=== PATIENT | female | born 1990 | race Two or more races ===

== ENCOUNTER 2018-01-23 11:58 | Outpatient (REF) | payer MEDICAID, SELFPAY | END 2018-01-23 11:59 | LOC: LBN 11:58 | PROVIDERS: PCP Nurse Practitioner; Visit Provider Nurse Practitioner | DX: R30.0 Dysuria (principal); R35.0 Frequency of micturition | CPT/HCPCS: 87077; 87086; 87186 ==

== ENCOUNTER 2018-03-09 19:12 | Outpatient (REF) | payer MEDICAID, SELFPAY | END 2018-03-09 19:32 | LOC: LBN 19:12 | PROVIDERS: PCP Nurse Practitioner; Visit Provider Nurse Practitioner Women's Health | DX: N90.89 Other specified noninflammatory disorders of vulva and perineum (principal); Z11.59 Encounter for screening for other viral diseases | CPT/HCPCS: 87529 ==

== ENCOUNTER 2018-05-24 13:44 | Outpatient (REF) | payer MEDICAID, SELFPAY ==
[2018-05-25 11:58] LABS: Helicobacter pylori Ag, Feces Negative (NEGAT)
== END 2018-05-24 14:04 ==
LOC: LBN 13:44
PROVIDERS: PCP Nurse Practitioner; Visit Provider Nurse Practitioner
DX: R10.13 Epigastric pain (principal); R14.0 Abdominal distension (gaseous)
CPT/HCPCS: 87338

== ENCOUNTER 2019-09-08 13:47 | Emergency (ER) | payer MEDICAID, SELFPAY ==
[2019-09-08 13:49] VITALS: BP 140/80; PULSE 92; RESP 16; TEMP 36.7; O2SAT 100
--- NOTE | 2019-09-08 14:00 | DI.CT_ITS ---
EXAM: CT CHEST/ABD/PEL W CLINICAL HISTORY: Approximately 5 foot fall, blunt trauma, R pain TECHNIQUE: CT examination of the chest, abdomen, and pelvis was performed with bolus infusion of 100 cc of Omnipaque 350. COMPARISON: ABD PELVIS WO CONTRAST from 10/09/2015 FINDINGS: There is no evidence of a thoracic vascular injury. The lungs are clear. No pneumothorax or pleural effusion. No mediastinal hematoma. No adenopathy in the chest. Tracheobronchial tree appears intact. The liver, spleen, and pancreas appear normal. Gallbladder and bile ducts are normal. Adrenals and kidneys are unremarkable. No evidence of urinary tract injury or obstruction. No abdominal or pelvic vascular injury seen. No abdominal or pelvic adenopathy. No significant abdomi nal wall hernia or hematoma. No evidence of bowel injury. IMPRESSION: No evidence of acute injury of the chest, abdomen, or pelvis. DATA REPOSITORY: All CT scans at this facility are submitted to the National Radiology Data Registry (NRDR) Dose Index Registry (DIR) with the [employer] (ACR). RADIATION OPTIMIZATION: All CT scans at this facility use at least one of these dose optimization te chniques: automated exposure control; mA and/or kV adjustment per patient size (includes targeted exa ms where dose is matched to clinical indication); or iterative reconstruction.
--- NOTE | 2019-09-08 14:03 | W.ED.GENAD ---
Discharge Plan Discharge Details Chief Complaint: Trauma Primary Care Provider: Aracelis Maki ED Provider: Derrick Sheppard Home Meds and New Rx's Prescriptions: No Action hydroxyzine HCl 25 mg tablet 25 mg PO QID PRN (Reason: cystitis) Qty: 120 RF: 2 valacyclovir 500 mg tablet 500 mg PO ONCE Qty: 30 RF: 6 omeprazole 20 mg capsule,delayed release(DR/EC) 20 mg PO DAILY Qty: 90 RF: 3 aspirin [Aspir-81] 81 MG tablet,delayed release (DR/EC) 81 mg PO DAILY RF: 0 Botox 100 UNIT recon soln 100 unit IJ DIRECTED RF: 0 clonazepam [Klonopin] 0.5 MG tablet 0.5 mg PO BID Qty: 120 RF: 0 sulfacetamide sodium (acne) 10 % suspension 1 applic TP BID RF: 0 metronidazole 0.75 % gel 1 applic TP BID RF: 0 mesalamine 1.2 gram tablet,delayed release (DR/EC) 1.2 gm PO QID RF: 0 Medical Decision Making 29-year-old female presents after slip and fall. [place] approximately 5 feet landing on her right posterior thoracic low abdomen. She denies loss of consciousness. No neck pain. She complains of right posterior chest pain. Vital signs are normal, patient is well-appearing, her exam is reassuring but she does demonstrate tenderness to percussion along the thorax/abdomen. Differential diagnosis includes contusion, underlying bony fracture, must exclude visceral injury. Patient had IV access established, given analgesia, referred for CT images. (Note: Patient stated she was not and declined to provide urine test). Screening labs are reassuring. Patient CT images without acute finding. She improved with administration of analgesia. Certainly does have contusion but no other significant findings. Discussed with her home management. She is stable for discharge at this time HPI General Mode of arrival: ambulatory. Date/Time Provider Initiated Documentation: 09/08/19 13:49. Limitations to Documentation: no limitations. Information obtained by: patient. History of Present Illness 29 year old F presents to the emergency department with the chief complaint of Fall, right posterior pain, described as moderate, Quality is described as dull and constant, and is localized to the back and right. Patient reports no radiation. Patient started experiencing this minute(s) and it has been constant. No relieving factors improve symptom(s), No exacerbating factors reported . Patient notes chest pain; denies headaches, shortness of breath and syncope. Patient did receive the following treatments prior to arrival, none Related Data Home Medications Medication Instructions Recorded Confirmed aspirin [Aspir-81] 81 mg PO DAILY tab-cap 09/24/14 09/08/19 Botox 100 unit IJ DIRECTED vial 06/11/15 09/08/19 clonazepam [Klonopin] 0.5 mg PO BID #120 tab-cap 07/25/17 09/08/19 hydroxyzine HCl 25 mg tablet 25 mg PO QID PRN #120 tab 05/23/18 09/08/19 valacyclovir 500 mg tablet 500 mg PO ONCE #30 tab 08/08/18 09/08/19 omeprazole 20 mg capsule,delayed 20 mg PO DAILY #90 cap 04/05/19 09/08/19 release metronidazole 0.75 % topical gel 1 applic TP BID 06/27/19 09/08/19 sulfacetamide sodium (acne) 10 % 1 applic TP BID 06/27/19 09/08/19 lotion (suspension) mesalamine 1.2 gram tablet,delayed 1.2 gm PO QID tab 07/06/19 09/08/19 release Previous Rx's Medication Instructions Recorded hydroxyzine HCl 25 mg tablet 25 mg PO QID PRN #120 tab 05/23/18 valacyclovir 500 mg tablet 500 mg PO ONCE #30 tab 08/08/18 omeprazole 20 mg capsule,delayed 20 mg PO DAILY #90 cap 04/05/19 release Allergies Allergy/AdvReac Type Severity Reaction Status Date / Time Penicillins Allergy Mild Itching Verified 09/08/19 13:55 lamotrigine [From Lamictal] Allergy Unknown Verified 09/08/19 13:55 levetiracetam [From Keppra] Allergy Verified 09/08/19 13:55 Estrogens AdvReac Severe CVA Verified 09/08/19 13:55 fluticasone propionate AdvReac Intermediate epistaxis Verified 09/08/19 13:55 [From Flonase] General Stated Complaint: Trauma DONOVAN: 2 Review of Systems Narrative: 6 systems reviewed and otherwise negative. No loss of consciousness, denies headache, no neck pain, no weakness tingling of the upper extremity. A posterior back and abdominal pain. 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 Botox q10 wks 03/28/19 Flat feet, bilateral (Chronic) Gastroesophageal reflux disease without esophagitis (Acute 02/19/16) 02/20/19 Upper GI Endoscopy at [facility] [place]. 02/06/19 GI [facility]-heartburn Multiple thyroid nodules (Acute 10/14/16) Rosacea (Acute) 08/15/18 [facility] [place] Dermatology Surgical History Colonoscopy/EGD w/ BX (04/29/16) Hemorrhoidectomy (08/03/17) excision of clot from hemorrhoid Social History Smoking/Tobacco Use Status: Never Alcohol Intake: never Drug use: Never Substance use type: does not use Do you feel safe at home: Yes Do you feel safe in your relationship?: Yes Female Reproductive History Menstrual control method: diaphragm and other (spermicide) History History 0 Para Hx # Term Pregnancies Multiple births Hx # Pregnancies Ectopic pregnancies AB induced Hx Number of Living Children AB spontaneous Exam Narrative Exam Narrative: GEN: awake, alert, oriented 3. Pleasant, well groomed, interactive. HEAD: Normocephalic, atraumatic ENT: Mucous membranes moist, oropharynx unremarkable, External ear exam unremarkable EYES: PERRL, EOMI NECK: Nontender, full ROM, no LUIZ, no menigismus CHEST/RESP: Right posterior chest wall tenderness, no crepitus, no appreciated abrasion or ecchymosis, clear to auscultation bilateral, no wheeze/rhonchi/rales CARDIOVASCULAR: RRR, no murmur, rub carole. 2+ Rad pulse bilateral Back: No midline step-off or deformity, right posterior paramidline tenderness of the thoracic cage ABDOMEN: Soft, nontender, no mass. +Bowel sounds EXT: Full ROM, no edema, no rash Neuro: Grossly normal neurologic exam, conversant, interactive. Psych: Speech fluent, thoughts congruent, affect normal Course Vital Signs Vital signs: Vital Signs Temperature 36.7 C 09/08/19 13:49 Pulse 92 H 09/08/19 13:49 Respiratory Rate 16 09/08/19 13:49 Blood Pressure 140/80 09/08/19 13:49 Pulse Oximetry 100 09/08/19 13:49 Temperature 36.7 C 09/08/19 13:49 Pulse 92 H 09/08/19 13:49 Respiratory Rate 16 09/08/19 13:49 Respiratory Effort Non-Labored 09/08/19 13:53 Blood Pressure 140/80 09/08/19 13:49 Blood Pressure Position Sitting 09/08/19 13:49 Pulse Oximetry 100 09/08/19 13:49 Oxygen Delivery Method Room Air 09/08/19 13:49 Oxygen Flow Rate 0 09/08/19 13:49 Pain Level 10 09/08/19 13:49
[2019-09-08] MEDS: Normal Saline 1,000 ML 1000 ML IV (14:05)
[2019-09-08 14:13] LABS: Abs Immature Grans 0.01 k/cumm (0.0-0.09); Absolute Basophil Count 0.03 k/cumm (0.0-0.2); Absolute Eosinophil Count 0.05 k/cumm (0.0-0.7); Absolute Monocyte Count 0.41 k/cumm (0.11-0.7); Absolute Neutrophil Count 1.77 k/cumm (1.2-6.7); Basophils % 0.7; Eosinophils % 1.2; HCT 39.5 % (36.0-46.0); HGB 13.4 g/dL (12.0-15.5); Immature Grans % 0.2 %; Lymphocytes % 44.3; Mean Corp. HGB Concentration 33.9 g/dL (32.0-36.0); Mean Corpuscular Hemoglobin 28.7 pg (27.0-33.0); Mean Corpuscular Volume 84.6 fL (80-95); Mean Platelet Volume 9.1 fL (8.0-11.0); Monocytes % 10.1; Neutrophils % 43.5; Platelet Count 333 x1000/uL (130-400); RBC 4.67 m/cumm (4.00-5.20); RBC Distribution Width 12.6 % (11.7-14.6); White Blood Cell Count 4.06 k/cumm (4.4-10.8)
[2019-09-08] MEDS: HYDROmorphone 2 MG/ML VIAL 0.5 MG IVP (14:15)
[2019-09-08 14:27] LABS: ALT 19 U/L (14-59); AST 18 U/L (15-37); Albumin 3.9 g/dL (3.4-5.0); Alkaline Phosphatase 53 U/L (46-116); Anion Gap 11.8 mmol/L (3-11); BUN 7 mg/dL (7-18); Bilirubin, Total 0.4 mg/dL (0.2-1.0); CO2 24.2 mmol/L (21.0-32.0); CREATININE 0.95 mg/dL (0.55-1.02); Calcium 8.7 mg/dL (8.5-10.1); Chloride 103 mmol/L (98-107); Glucose 108 mg/dL (74-106); Potassium 3.4 mmol/L (3.5-5.1); Sodium 139 mmol/L (136-145); Total Protein 7.5 g/dL (6.4-8.2)
[2019-09-08] MEDS: Omnipaque 350 MG/ML 100 ML BTL IJ (14:56)
[2019-09-08] MEDS: Normal Saline - Diluent 50 ML VIAL IV (14:56)
--- NOTE | 2019-09-08 15:04 | DI.VRAD_ITS ---
PROCEDURE INFORMATION: Exam: CT Chest With Contrast Exam date and time: 09/08/2019 2:03 PM Age: 29 years old Clinical indication: Injury or trauma; Fall; Initial encounter; Ruq; Blunt trauma (contusions or hematomas); Injury details: Fell on rock TECHNIQUE: Imaging protocol: Computed tomography of the chest with intravenous contrast. COMPARISON: CT ABD PELVIS WO CONTRAST 10/09/2015 3:23 PM FINDINGS: Mediastinum appears unremarkable. No evidence of pneumothorax. No pleural effusion. No significant focal consolidation. Bony structures appear intact. IMPRESSION: No evidence of significant thoracic trauma. PROCEDURE INFORMATION: Exam: CT Abdomen And Pelvis With Contrast Exam date and time: 09/08/2019 2:03 PM Age: 29 years old Clinical indication: Injury or trauma; Fall; Initial encounter; Ruq; Blunt trauma (contusions or hematomas); Injury details: Fell on rock TECHNIQUE: Imaging protocol: Computed tomography of the abdomen and pelvis with intravenous contrast. COMPARISON: CT ABD PELVIS WO CONTRAST 10/09/2015 3:23 PM FINDINGS: Liver, spleen, and kidneys appear intact. No significant free fluid. No extraluminal air. Bony structures intact. IMPRESSION: No evidence of significant abdominal or pelvic trauma. Dictated and Authenticated by: Alvarado Miramontes MD. Ordering:ALESIA Meza MD
[2019-09-08 15:10] VITALS: BP 102/65; PULSE 82; RESP 16; TEMP 36.6; O2SAT 97
[2019-09-08] MEDS: Ketorolac 15 MG/ML VIAL IVP (15:33)
== END 2019-09-08 15:45 | disposition home or self-care (01) ==
PROVIDERS: Emergency Provider Emergency Medicine; PCP Nurse Practitioner
DX: S20.222A Contusion of left back wall of thorax, initial encounter (principal); W01.0XXA Fall on same level from slipping, tripping and stumbling without subsequent striking against object, initial encounter
CPT/HCPCS: 74177; 80053; 96361; 96374; 99285; 71260; 85025; 99284; J1885; J3490

== ENCOUNTER 2019-10-31 01:53 | Outpatient (CLI) | payer MEDICAID, SELFPAY ==
--- NOTE | 2019-10-31 07:45 | DI.US_ITS ---
EXAM: US THYROID CLINICAL HISTORY: F/U MULTIPLE THYROID NODULES, NONTOXIC MULTINODULAR GOITER, E04.2 TECHNIQUE: Ultrasound performed using standard protocol. COMPARISON: US THYROID ULTRASOUND from 10/13/2016 FINDINGS: Thyroid ultrasound was performed according to the usual protocol and is compared with prior ultrasoun d examination of 10/13/2016. Right thyroid lobe measures 51 x 14 x 17 millimeters. Left thyroid lobe measures 54 x 14 x 14. The isthmus is about 2 millimeters in thickness. There are multiple thyroid nodules identified. There is a dominant 14 millimeter in diameter complex lesion, which shows increased vascularity on Doppler evaluation. This appears to contain some quest ionable punctate echogenic foci, the TI-RADS category for this lesion is TR4, fine needle aspiration recommended to assess the possibility of malignancy. The remaining thyroid nodules show TI-RADS scores of TR3 or less, no additional recommendations for b iopsy at this time. IMPRESSION: Tissue sampling recommended for left lobe lower pole complex thyroidal mass with internal punctate mi crocalcifications, TI-RADS category TR4. DATA REPOSITORY:
== END 2019-10-31 02:13 ==
PROVIDERS: PCP Nurse Practitioner; Visit Provider Nurse Practitioner
DX: E04.2 Nontoxic multinodular goiter (principal); E07.89 Other specified disorders of thyroid
CPT/HCPCS: 76536

== ENCOUNTER 2019-11-21 01:42 | Outpatient (CLI) | payer MEDICAID, SELFPAY ==
--- NOTE | 2019-11-21 13:15 | DI.US_ITS ---
EXAM: US BREAST LT COMPLETE CLINICAL HISTORY: Breast tender, feels warm to patient, fibrocystic canges, N60.19 TECHNIQUE: Ultrasound performed using standard protocol. COMPARISON: US US THYROID from 10/31/2019 FINDINGS: Left breast ultrasound was performed in all 4 quadrants, patient reports no palpable mass. Breast pa renchyma is unremarkable in appearance. No mass or cyst identified. IMPRESSION: Negative left breast ultrasound. DATA REPOSITORY:
== END 2019-11-21 02:02 ==
PROVIDERS: PCP Nurse Practitioner; Visit Provider Nurse Practitioner
DX: N60.12 Diffuse cystic mastopathy of left breast (principal); N64.4 Mastodynia
CPT/HCPCS: 76642

== ENCOUNTER 2020-04-08 14:44 | Outpatient (REF) | payer MEDICAID, SELFPAY ==
[2020-04-08 18:45] LABS: Bacteria Few HPF (Negative); C & S Indicated? No/Sq. Contamination; Casts Negative LPF (Negative); Crystals Negative HPF (Negative); Epithelial Cells Moderate HPF (Negative); Mucus Negative (Negative)
== END 2020-04-08 15:04 ==
LOC: LBO 14:44
PROVIDERS: PCP Nurse Practitioner; Visit Provider Student in an Organized Health Care Education/Training Program
DX: R39.198 Other difficulties with micturition (principal); R39.11 Hesitancy of micturition; Z87.440 Personal history of urinary (tract) infections
CPT/HCPCS: 81015

== ENCOUNTER 2020-04-28 00:52 | Outpatient (CLI) | payer MEDICAID, SELFPAY ==
--- NOTE | 2020-04-28 07:45 | DI.US_ITS ---
EXAM: US PELVIS TRANSVAGINAL CLINICAL HISTORY: pelvic pain,DYSPAREUNIA, TECHNIQUE: Ultrasound performed using standard protocol. COMPARISON: US US BREAST LT COMPLETE from 11/21/2019 FINDINGS: Pelvic ultrasound was performed transabdominally transvaginally. The myometrium has an unremarkable appearance, uterus measures 6.6 x 3.3 x 5.2 centimeters. The endometrial stripe is homogeneous and is about 9 millimeters in thickness. Right ovary measures 30 x 12 x 16 millimeters, left ovary measures 21 x 24 x 24 millimeters. Right ovary has a normal follicular appearance. Left ovary contains a 24 x 25 x 22 millimeter in diameter predominantly cystic complex mass, question hemorrhagic cyst. This mass is avascular. Other etiologies including neoplastic disease not exclud ed, follow-up pelvic ultrasound recommended in 4-6 weeks. There is trace fluid in the cul-de-sac, probably physiologic. A couple of nabothian cysts are noted. IMPRESSION: Complex 25 millimeter left ovarian mass, most likely hemorrhagic cyst. Follow-up pelvic ultrasound r ecommended in 4-6 weeks. DATA REPOSITORY:
== END 2020-04-28 01:12 ==
PROVIDERS: PCP Nurse Practitioner; Visit Provider Obstetrics & Gynecology
DX: N83.202 Unspecified ovarian cyst, left side (principal); N94.10 Unspecified dyspareunia
CPT/HCPCS: 76830; 76856

== ENCOUNTER 2020-06-04 00:35 | Outpatient (CLI) | payer MEDICAID, SELFPAY ==
--- NOTE | 2020-06-04 07:59 | DI.US_ITS ---
EXAM: US PELVIS TRANSVAGINAL CLINICAL HISTORY: left ovarian cyst, dyspareunia, N83.202. TECHNIQUE: Transabdominal and transvaginal pelvic ultrasound was performed using standard protocol. COMPARISON: US US PELVIS TRANSVAGINAL from 04/28/2020 FINDINGS: KIDNEYS: Kidneys are symmetric in size. No evidence of renal calculi. No evidence of hydronephrosis. No renal mass or cyst identified. UTERUS: Position: Anteverted. Size: 6.5 long by 3.1 AP by 5.9 transverse cm Endometrium: 0.9 cm. Normal for patient's menstrual status. Myometrium: Unremarkable. Cervix: Unremarkable. OVARIES: Right: 2.8 x 1.6 x 1.6 cm Cyst or mass: Small physiologic cysts are present. Left: 2.5 x 1.5 x 1.7 cm Cyst or mass: Small physiologic cysts are present. The previously noted complex left ovarian cyst patel s resolved. DOPPLER: Color: Symmetric and uniform flow to both ovaries. No hyperemia. CUL-DE-SAC: Free fluid: None. Other: None. IMPRESSION: 1. Normal sonographic appearance of the kidneys. 2. Normal-appearing uterus with endometrial stripe within normal limits. 3. Unremarkable bilateral ovaries. There has been resolution of the previously noted 2.5 cm complex l eft ovarian cyst. DATA REPOSITORY:
== END 2020-06-04 00:55 ==
PROVIDERS: PCP Nurse Practitioner; Visit Provider Obstetrics & Gynecology
DX: N83.291 Other ovarian cyst, right side (principal); N94.19 Other specified dyspareunia
CPT/HCPCS: 76830; 76856

== ENCOUNTER 2020-06-22 14:30 | Emergency (ER) | payer MEDICAID, SELFPAY ==
[2020-06-22 14:43] VITALS: BP 130/85; PULSE 82; RESP 18; TEMP 37.4; O2SAT 96
--- NOTE | 2020-06-22 15:07 | ED.GENADUL_ITS ---
Discharge Plan Disposition Patient Disposition: HOME Condition: Stable Discharge Details Clinical Impression: Leg pain, right Primary Care Provider: Aracelis Maki ED Provider: Brad Timmons Home Meds and New Rx's Prescriptions: Continued hydroxyzine HCl 25 mg tablet 25 mg PO QID PRN (Reason: cystitis) Qty: 120 RF: 2 valacyclovir 500 mg tablet 500 mg PO ONCE Qty: 30 RF: 6 fexofenadine [Allergy Relief (fexofenadine)] 180 mg tablet 180 mg PO DAILY Qty: 90 RF: 3 omeprazole 20 mg capsule,delayed release(DR/EC) 20 mg PO DAILY Qty: 90 RF: 3 acetaminophen [Tylenol] 325 mg tablet 325 mg PO ONCE PRNRF: 0 pseudoephedrine HCl [Sudafed 12 Hour] 120 mg tablet extended release 120 mg PO Q12H PRNRF: 0 simethicone [Gas Relief (simethicone)] 125 mg tablet,chewable 125 mg PO TID PRNRF: 0 docusate sodium [Colace] 100 mg capsule 100 mg PO DAILY RF: 0 aspirin [Aspir-81] 81 MG tablet,delayed release (DR/EC) 81 mg PO DAILY RF: 0 Botox 100 UNIT recon soln 100 unit IJ DIRECTED RF: 0 clonazepam [Klonopin] 0.5 MG tablet 0.5 mg PO BID Qty: 120 RF: 0 mesalamine 1.2 gram tablet,delayed release (DR/EC) 1.2 gm PO QID RF: 0 metronidazole 0.75 % gel 1 applic TP BID RF: 0 fluticasone propion-salmeterol 250-50 mcg/dose blister with device 1 inh inhalation BID Qty: 60 RF: 6 albuterol sulfate 90 mcg/actuation HFA aerosol inhaler 2 puff IH QID PRN (Reason: shortness of breath or wheezing) Qty: 18 RF: 5 Discharge Instructions Instructions: Apixaban (By mouth), Superficial Thrombophlebitis (ED) Additional Instructions: Please return to the hospital tomorrow for ultrasound of your right lower extremity. Upon completion of your ultrasound tomorrow, please return to the emergency department or speak with your doctor about the results of the study. If the ultrasound reveals a DVT, you will need additional treatment. Today you were given a dose of Eliquis and a dose to take late this evening. Please follow-up with your doctor and return to the emergency department immediately for any worsening or new concerning symptoms. Referrals: Aracelis Maki NP [Primary Care Provider] - Medical Decision Making 30-year-old female here with right leg discomfort over the past couple months, worse since yesterday. Patient does have a prior history of superior sinus thrombus while she was on oral contraceptive, no longer on anticoagulant. Patient is hemodynamically stable. No tachycardia, hypoxia, tachypnea or shortness of breath or chest pain suggestive of pulmonary embolism. I called the diagnostic imaging department to inquire if technologist available to perform ultrasound to assess for DVT. Unfortunately there is no technologist available. I did call nearby hospital, [place], to inquire if they had ultrasound capability and they do not. Plan will be for patient to return tomorrow for outpatient ultrasound of the right lower extremity to assess for DVT. In the interim I will initiate treatment with apixaban. Initial dose of apixaban 10 mg given here as well as a to go dose for late this evening. Patient was encouraged to return to the emergency department or speak with her doctor after ultrasound tomorrow. Patient was encouraged to return immediately for any worsening or new concerning symptoms. HPI General Mode of arrival: ambulatory . Date/Time Provider Initiated Documentation: 06/22/20 14:39 . Limitations to Documentation: no limitations . Information obtained by: patient . HPI Narrative: 30-year-old female presents with chief complaint of right calf pain. Patient notes pain started in April and has persisted, much worse since yesterday. She notes associated focal area of skin discoloration posterior right calf. Pain worse on palpation. No associated shortness of breath or chest pain. Patient does have a remote history of superior sinus thrombus that was treated with anticoagulation and thought to be secondary to oral contraceptive use. She is no longer on oral contraceptive and has been off of anticoagulant for some time. She does continue to take a baby aspirin daily. Related Data Home Medications Medication Instructions Recorded Confirmed aspirin [Aspir-81] 81 mg PO DAILY tab-cap 09/24/14 06/22/20 Botox 100 unit IJ DIRECTED vial 06/11/15 06/22/20 clonazepam [Klonopin] 0.5 mg PO BID #120 tab-cap 07/25/17 06/22/20 hydroxyzine HCl 25 mg tablet 25 mg PO QID PRN #120 tab 05/23/18 06/22/20 valacyclovir 500 mg tablet 500 mg PO ONCE #30 tab 08/08/18 06/22/20 mesalamine 1.2 gram tablet,delayed 1.2 gm PO QID tab 09/25/19 06/22/20 release fexofenadine 180 mg tablet 180 mg PO DAILY #90 tab 11/19/19 06/22/20 omeprazole 20 mg capsule,delayed 20 mg PO DAILY #90 cap 04/08/20 06/22/20 release metronidazole 0.75 % topical gel 1 applic TP BID 04/29/20 06/22/20 fluticasone 250 mcg-salmeterol 50 1 inh INHALATION BID #60 ea 05/01/20 06/22/20 mcg/dose blistr powdr for inhalation albuterol sulfate 90 mcg/actuation 2 puff IH QID PRN #18 gm 05/21/20 06/22/20 aerosol inhaler acetaminophen 325 mg tablet 325 mg PO ONCE PRN 06/18/20 06/22/20 docusate sodium 100 mg capsule 100 mg PO DAILY 06/18/20 06/22/20 pseudoephedrine HCl 120 mg 120 mg PO Q12H PRN 06/18/20 06/22/20 tablet,extended release simethicone 125 mg chewable tablet 125 mg PO TID PRN 06/18/20 06/22/20 Previous Rx's Medication Instructions Recorded hydroxyzine HCl 25 mg tablet 25 mg PO QID PRN #120 tab 05/23/18 valacyclovir 500 mg tablet 500 mg PO ONCE #30 tab 08/08/18 fexofenadine 180 mg tablet 180 mg PO DAILY #90 tab 11/19/19 omeprazole 20 mg capsule,delayed 20 mg PO DAILY #90 cap 04/08/20 release fluticasone 250 mcg-salmeterol 50 1 inh INHALATION BID #60 ea 05/01/20 mcg/dose blistr powdr for inhalation albuterol sulfate 90 mcg/actuation 2 puff IH QID PRN #18 gm 05/21/20 aerosol inhaler Allergies Allergy/AdvReac Type Severity Reaction Status Date / Time Penicillins Allergy Mild Itching Verified 06/18/20 12:28 lamotrigine [From Lamictal] Allergy Unknown Verified 06/18/20 12:28 levetiracetam [From Keppra] Allergy Verified 06/18/20 12:28 Estrogens AdvReac Severe CVA Verified 06/18/20 12:28 fluticasone propionate AdvReac Intermediate epistaxis Verified 06/18/20 12:28 [From Flonase] General Stated Complaint: Vascular DONOVAN: 2 Review of Systems Constitutional Constitutional: Denies fever(s) Cardiovascular Cardiovascular: Denies chest pain and Denies dyspnea Respiratory Respiratory: Denies cough and Denies dyspnea Musculoskeletal Musculoskeletal: Reports tingling (Sensation in her right leg today) Integumentary/Breasts Skin/Breast: Reports as per HPI Neurologic Neurologic: Reports tingling (Sensation in her right leg today) [facility] Medical History Cerebral venous sinus thrombosis (09/04/13) POSSILBE SEIZURE ACTIVITY Neurology 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 Botox q10 wks 03/28/19 05/26/20 [facility] [place] therapeutic botox Dyspareunia Environmental allergies Flat feet, bilateral Gastroesophageal reflux disease without esophagitis (02/19/16) 02/20/19 Upper GI Endoscopy at [facility] [place]. 02/06/19 GI [facility]-heartburn Left ovarian cyst Migraine headache without aura Multiple thyroid nodules (10/14/16) Ovarian cyst Rosacea 08/15/18 [facility] [place] Dermatology Thyroid lesion Surgical History Colonoscopy/EGD w/ [facility] (04/29/16) Hemorrhoidectomy (08/03/17) excision of clot from hemorrhoid Family History Mother No problems noted. Father No problems noted. Grandfather Stroke Grandmother Stroke Social History Smoking/Tobacco Use Status: Never Smoking risk assessment performed?: Yes Alcohol Intake: never Drug use: Never Substance use type: does not use Do you feel safe at home: Yes Do you feel safe in your relationship?: Yes Female Reproductive History Menstrual control method: diaphragm and other (spermicide) History History 0 Para Hx # Term Pregnancies Multiple births Hx # Pregnancies Ectopic pregnancies AB induced Hx Number of Living Children AB spontaneous Exam Const General: cooperative and no acute distress HENMT Mouth: moist mucous membranes Eyes Sclera: normal sclerae Resp Auscultation: clear to auscultation bilaterally, no rales, no rhonchi and no wheezes Cardio Rate: regular rate and not tachycardic Rhythm: regular rhythm Pulses: dorsalis pedis present bilaterally 2+ Skin General skin exam: no rashes or lesions noted Neuro General: patient alert, patient awake and tone normal Extrem General: calf tenderness on the right and no edema Course Vital Signs Vital signs: Vital Signs Temperature 37.4 C 06/22/20 14:43 Pulse 82 06/22/20 14:43 Respiratory Rate 18 06/22/20 14:43 Blood Pressure 130/85 06/22/20 14:43 Pulse Oximetry 96 06/22/20 14:43 Temperature 37.4 C 06/22/20 14:43 Temperature Source Temporal Artery Scan 06/22/20 14:43 Pulse 82 06/22/20 14:43 Respiratory Rate 18 06/22/20 14:43 Respiratory Effort Non-Labored 06/22/20 14:46 Blood Pressure 130/85 06/22/20 14:43 Blood Pressure Position Sitting 06/22/20 14:43 Pulse Oximetry 96 06/22/20 14:43 Oxygen Delivery Method Room Air 06/22/20 14:43 Oxygen Flow Rate 0 06/22/20 14:43 Pain Level 2 06/22/20 14:43
[2020-06-22] MEDS: Apixaban 5 MG TAB 10 MG PO ×2 (15:22)
== END 2020-06-22 15:39 | disposition home or self-care (01) ==
PROVIDERS: Emergency Provider Student in an Organized Health Care Education/Training Program; PCP Nurse Practitioner
DX: M79.661 Pain in right lower leg (principal)
CPT/HCPCS: 99283

== ENCOUNTER 2020-06-23 11:32 | Outpatient (CLI) | payer MEDICAID, SELFPAY ==
--- NOTE | 2020-06-23 | DI.US_ITS ---
EXAM: US LOWER EXTREMITY VENOUS RT CLINICAL HISTORY: PAIN, RLE TECHNIQUE: Grayscale, color, and doppler imaging of the deep venous system of the right lower extrem ity was performed. US US PELVIS TRANSVAGINAL from 06/04/2020 FINDINGS: There is no evidence of intraluminal thrombus and there is normal compression and augmentation demons trated within the common femoral veis, femoral veis, and popliteal vein. In the ipsilateral calf the interrogated veins also exhibit normal compression/ augmentation properti es. The greater saphenous veins also appear patent as does the saphenofemoral junction. IMPRESSION: 1. No evidence of DVT in the right lower extremity. DATA REPOSITORY:
== END 2020-06-23 11:52 ==
PROVIDERS: PCP Nurse Practitioner; Visit Provider Student in an Organized Health Care Education/Training Program
DX: M79.604 Pain in right leg (principal)
CPT/HCPCS: 93971

== ENCOUNTER 2020-08-11 21:15 | Outpatient (REF) | payer MEDICAID, SELFPAY ==
[2020-08-12 15:05] LABS: COVID-19 RT-PCR UVMMC Result Negative (Negative)
== END 2020-08-11 21:16 | disposition home or self-care (01) ==
LOC: LBN 21:15
PROVIDERS: PCP Nurse Practitioner; Visit Provider Nurse Practitioner Family
DX: J35.01 Chronic tonsillitis (principal); Z20.822 Contact with and (suspected) exposure to COVID-19
CPT/HCPCS: 87077; U0003; 87070

== ENCOUNTER 2020-08-14 12:28 | Emergency (ER) | payer MEDICAID, SELFPAY ==
--- NOTE | 2020-08-14 12:35 | W.ED.GENAD ---
Discharge Plan Disposition Patient Disposition: HOME Condition: Stable Discharge Details Clinical Impression: Fatigue, Chronic sore throat Primary Care Provider: Aracelis Maki ED Provider: Anu Valero Home Meds and New Rx's Prescriptions: Continued hydroxyzine HCl 25 mg tablet 25 mg PO QID PRN (Reason: cystitis) Qty: 120 RF: 2 valacyclovir 500 mg tablet 500 mg PO ONCE Qty: 30 RF: 6 fexofenadine [Allergy Relief (fexofenadine)] 180 mg tablet 180 mg PO DAILY Qty: 90 RF: 3 omeprazole 20 mg capsule,delayed release(DR/EC) 20 mg PO DAILY Qty: 90 RF: 3 acetaminophen [Tylenol] 325 mg tablet 325 mg PO ONCE PRNRF: 0 pseudoephedrine HCl [Sudafed 12 Hour] 120 mg tablet extended release 120 mg PO Q12H PRNRF: 0 simethicone [Gas Relief (simethicone)] 125 mg tablet,chewable 125 mg PO TID PRNRF: 0 docusate sodium [Colace] 100 mg capsule 100 mg PO DAILY RF: 0 aspirin [Aspir-81] 81 MG tablet,delayed release (DR/EC) 81 mg PO DAILY RF: 0 Botox 100 UNIT recon soln 100 unit IJ DIRECTED RF: 0 Hold Instructions: Changed by Provider clonazepam [Klonopin] 0.5 MG tablet 0.5 mg PO BID Qty: 120 RF: 0 mesalamine 1.2 gram tablet,delayed release (DR/EC) 1.2 gm PO QID RF: 0 metronidazole 0.75 % gel 1 applic TP BID RF: 0 albuterol sulfate 90 mcg/actuation HFA aerosol inhaler 2 puff IH QID PRN (Reason: shortness of breath or wheezing) Qty: 18 RF: 5 Discharge Instructions Instructions: Pharyngitis (ED), Allergies (ED), Fatigue (ED) Additional Instructions: Drink plenty of fluids and get plenty of rest. Alternate tylenol and motrin as needed and directed for pain. Restart taking her allergy medicine as your chronic sore throat may be due to postnasal drip from allergies. You can also gargle with salt water and/or warm water mixed with a capful of hydrogen peroxide which may help with tonsil stones. Follow-up with your primary care doctor in 1 week. Return to the emergency department with any worsening or new concerning symptoms. Discharge Data Discharge Date/Time-TO BE ENTERED AT DEPARTURE: 08/14/20 15:47 Discharge Physician: Anu Valero Medical Decision Making 30-year-old female with a history of chronic sore throat for the past year, complaining of persistent sore throat, fatigue and decreased appetite for the past month. Recent negative Covid test and strep test 2 days ago. Vitals within normal limits. She appears nontoxic. Normal ENT exam. Lungs clear. Abdomen soft nontender. Patient appears nontoxic. No meningeal signs. Patient declines repeat rapid strep or Covid test which I think is reasonable as her presentation does not appear consistent with strep pharyngitis. Patient states she mainly came in for lab work. Will obtain a tick and Lyme panel, CBC and CMP and urine test. She is declining any medication for pain or nausea. Labs reviewed and unremarkable. Urine test negative. Discussed with patient that symptoms likely could be due to dehydration, viral syndrome, allergies, etc. Do not see indication for imaging and patient agreeable. Advised to increase fluids and rest. Advised to follow up with the primary care doctor for re-evaluation. Usual and customary return precautions given prior to discharge. Medical Records Medical records reviewed: Yes I reviewed the patient's medical records. Lab Data Lab results reviewed: Yes I reviewed the patient's lab results. Labs: Laboratory Tests Range/Units 08/14/20 08/14/20 08/14/20 14:30 14:30 14:30 WBC (4.4-10.8) 10^3/uL 5.02 RBC (3.93-5.22) 10^6/uL 4.92 Hgb (11.2-15.7) g/dL 13.6 Hct (36.0-46.0) % 41.5 MCV (80-95) fL 84.3 MCH (27.0-33.0) pg 27.6 MCHC (32.0-36.0) % 32.8 RDW (11.7-14.6) % 12.7 Plt Count (130-400) 10^3/uL 311 MPV (8.0-11.0) fL 9.2 Immature Gran % 0.2 Neutrophils % 51.5 Lymphocytes % 35.9 Monocytes % 8.4 Eosinophils % 3.2 Basophils % 0.8 Nucleated RBC % % 0 Absolute Neutrophils (1.2-6.7) 10^3/uL 2.59 Absolute Lymphocytes (1.2-3.4) 10^3/uL 1.80 Absolute Monocytes (0.1-0.8) 10^3/uL 0.42 Absolute Eosinophils (0.0-0.7) 10^3/uL 0.16 Absolute Basophils (0.0-0.2) 10^3/uL 0.04 Sodium (136-145) mmol/L 138 Potassium (3.5-5.1) mmol/L 4.2 Chloride (98-107) mmol/L 105 Carbon Dioxide (21.0-32.0) mmol/L 26.0 Anion Gap (3-11) mmol/L 7.0 BUN (7-18) mg/dL 9 Creatinine (0.55-1.02) mg/dL 0.7 Estimated GFR/1.73 m2 (mL/min/1.73m2) >= 60.00 Glucose (74-106) mg/dL 88 Calcium (8.5-10.1) mg/dL 8.7 Total Bilirubin (0.2-1.0) mg/dL 0.3 AST (15-37) U/L 11 L ALT (14-59) U/L 11 L Alkaline Phosphatase (46-116) U/L 51 Total Protein (6.4-8.2) g/dL 7.6 Albumin (3.4-5.0) g/dL 3.8 A.phagocytophil DNA PCR (Negative) Negative B. divergens/MO-1 PCR (Negative) Negative Babesia duncani (PCR) (Negative) Negative Babesia microti DNA PCR (Negative) Negative Borrelia (PCR) (Negative) Negative Lyme Disease Antibody (Negative) Negative E.chaffeensis DNA (PCR) (Negative) Negative E.ewingii/canis DNA PCR (Negative) Negative E. muris-like DNA (PCR) (Negative) Negative HPI General Mode of arrival: ambulatory. Date/Time Provider Initiated Documentation: 08/14/20 12:35. Limitations to Documentation: no limitations. Information obtained by: patient. HPI Narrative: Patient is a 30-year-old female with a history of cerebral venous thrombosis secondary to control, migraine, GERD who presents to the ED with a complaint of sore throat for the past year, worse over the past month and also associated with increased fatigue and decreased appetite over the past month. She states she has had a low-grade fever. She states her normal temperature is 92 and has had a low-grade fever of 95. She states she checks her temperature at home with infrared. She recently saw her primary care doctor for her sore throat and had a recent negative rapid strep test and recent negative Covid test. She denies any new headache, neck pain, chest pain, shortness of breath, abdominal pain, urinary symptoms, rash, vomiting, diarrhea, recent travel, recent sick contacts or recent known exposure to coronavirus. Related Data Home Medications Medication Instructions Recorded Confirmed aspirin [Aspir-81] 81 mg PO DAILY tab-cap 09/24/14 08/14/20 Botox 100 unit IJ DIRECTED vial 06/11/15 08/14/20 clonazepam [Klonopin] 0.5 mg PO BID #120 tab-cap 07/25/17 08/14/20 hydroxyzine HCl 25 mg tablet 25 mg PO QID PRN #120 tab 05/23/18 08/14/20 valacyclovir 500 mg tablet 500 mg PO ONCE #30 tab 08/08/18 08/14/20 mesalamine 1.2 gram tablet,delayed 1.2 gm PO QID tab 09/25/19 08/14/20 release fexofenadine 180 mg tablet 180 mg PO DAILY #90 tab 11/19/19 08/14/20 omeprazole 20 mg capsule,delayed 20 mg PO DAILY #90 cap 04/08/20 08/14/20 release metronidazole 0.75 % topical gel 1 applic TP BID 04/29/20 08/14/20 albuterol sulfate 90 mcg/actuation 2 puff IH QID PRN #18 gm 05/21/20 08/14/20 aerosol inhaler acetaminophen 325 mg tablet 325 mg PO ONCE PRN 06/18/20 08/14/20 docusate sodium 100 mg capsule 100 mg PO DAILY 06/18/20 08/14/20 pseudoephedrine HCl 120 mg 120 mg PO Q12H PRN 06/18/20 08/14/20 tablet,extended release simethicone 125 mg chewable tablet 125 mg PO TID PRN 06/18/20 08/14/20 Previous Rx's Medication Instructions Recorded hydroxyzine HCl 25 mg tablet 25 mg PO QID PRN #120 tab 05/23/18 valacyclovir 500 mg tablet 500 mg PO ONCE #30 tab 08/08/18 fexofenadine 180 mg tablet 180 mg PO DAILY #90 tab 11/19/19 omeprazole 20 mg capsule,delayed 20 mg PO DAILY #90 cap 04/08/20 release albuterol sulfate 90 mcg/actuation 2 puff IH QID PRN #18 gm 05/21/20 aerosol inhaler Allergies Allergy/AdvReac Type Severity Reaction Status Date / Time Penicillins Allergy Mild Itching, Verified 08/14/20 15:23 hives lamotrigine [From Lamictal] Allergy Unknown Verified 08/14/20 15:27 levetiracetam [From Keppra] Allergy Suicidality- Verified 08/14/20 15:27 mood swings Estrogens AdvReac Severe CVA Verified 08/14/20 15:27 fluticasone propionate AdvReac Intermediate epistaxis Verified 08/14/20 15:27 [From Flonase] General DONOVAN: 4 Review of Systems All systems reviewed & are unremarkable except as noted in HPI and below Constitutional Constitutional: Reports as per HPI, Denies chills, Reports fatigue, Reports fever(s) and Reports poor appetite Eyes Eyes: Denies blurry vision ENT Ears, Nose, Mouth, and Throat: Denies dizziness, Reports sore throat and Denies throat swelling Cardiovascular Cardiovascular: Denies chest pain and Denies dyspnea Respiratory Respiratory: Denies cough and Denies dyspnea Gastrointestinal Gastrointestinal: Denies abdominal pain, Denies diarrhea and Denies vomiting Genitourinary Genitourinary: Denies hematuria and Denies dysuria Musculoskeletal Musculoskeletal: Denies back pain and Denies numbness Integumentary/Breasts Skin/Breast: Denies lesions and Denies rash Neurologic Neurologic: Denies dizziness, Denies localized weakness and Denies numbness Endocrine Endocrine: Reports fatigue Allergic/Immunologic Allergic/Immunologic: Denies throat swelling [facility] Medical History Cerebral venous sinus thrombosis (09/04/13) POSSILBE SEIZURE ACTIVITY Neurology Clement 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 Botox q10 wks 03/28/19 05/26/20 [facility] [place] therapeutic botox Dyspareunia Environmental allergies Flat feet, bilateral Gastroesophageal reflux disease without esophagitis (02/19/16) 02/20/19 Upper GI Endoscopy at [facility] [place]. 02/06/19 [facility]-heartburn Left ovarian cyst Migraine headache without aura Multiple thyroid nodules (10/14/16) Ovarian cyst Rosacea 08/15/18 [facility] [place] Dermatology Thyroid lesion Surgical History Colonoscopy/EGD w/ BX (04/29/16) Hemorrhoidectomy (08/03/17) excision of clot from hemorrhoid Family History Mother No problems noted. Father No problems noted. Grandfather Stroke Grandmother Stroke Social History Smoking/Tobacco Use Status: Never Smoking risk assessment performed?: Yes Alcohol Intake: never Drug use: Never Substance use type: does not use Do you feel safe at home: Yes Do you feel safe in your relationship?: Yes Female Reproductive History Menstrual control method: diaphragm and other (spermicide) History History 0 Para Hx # Term Pregnancies Multiple births Hx # Pregnancies Ectopic pregnancies AB induced Hx Number of Living Children AB spontaneous Exam Const General: cooperative and healthy appearing Orientation: alert and awake [facility] Head: normal to inspection Ears: hearing grossly normal bilaterally, external ears normal and TM's normal bilaterally General nose exam: external nose normal Face and sinus: normal facial exam Mouth: oral mucosae normal Teeth and gingiva: dentition normal Throat: posterior oropharynx normal, uvula midline and no peritonsillar masses Eyes General: appearance normal, both eyes and all related structures Eyelids: eyelids normal Pupils: PERRL EOM: EOM intact bilaterally Neck Neck: normal visual inspection Lymphatic: no lymphadenopathy noted Chest Chest: normal inspection of the chest Resp Effort & Inspection: normal respiratory effort and able to speak in complete sentences Auscultation: clear to auscultation bilaterally Cardio Rate: regular rate Rhythm: regular rhythm GI Inspection: normal to inspection Palpation: soft, not firm, no guarding, no hepatosplenomegaly, no masses and nontender Auscultation: normal bowel sounds Back/Spine/Pelvis Back: no CVA tenderness Skin General skin exam: no rashes or lesions noted Neuro General: patient alert, patient awake, patient oriented x3, gait normal, moves all extremities, no meningeal signs and no focal motor deficits Cognition: normal cognition Speech: speech normal Gait: normal gait Motor: muscle tone normal throughout Sensory Exam: no sensory deficits noted Extrem General: normal to inspection, full ROM and capillary refill normal Psych Appearance: grossly normal Mental Status: mental status grossly normal Speech and Movement: speech and movement normal Affect: normal affect Thought Process: normal
[2020-08-14 12:44] VITALS: BP 112/76; PULSE 80; RESP 14; TEMP 37.3; O2SAT 97
--- NOTE | 2020-08-14 14:16 | NUR.NOTE ---
pt declining test - confident she is not Nursing Note:
[2020-08-14 14:52] LABS: Abs Immature Grans 0.01 10^3/uL (0.0-0.06); Absolute Basophil Count 0.04 10^3/uL (0.0-0.2); Absolute Eosinophil Count 0.16 10^3/uL (0.0-0.7); Absolute Monocyte Count 0.42 10^3/uL (0.1-0.8); Absolute Neutrophil Count 2.59 10^3/uL (1.2-6.7); Basophils % 0.8; Eosinophils % 3.2; HCT 41.5 % (36.0-46.0); HGB 13.6 g/dL (11.2-15.7); Immature Grans % 0.2; Lymphocytes % 35.9; MCH 27.6 pg (27.0-33.0); MCHC 32.8 % (32.0-36.0); MCV 84.3 fL (80-95); MPV 9.2 fL (8.0-11.0); Monocytes % 8.4; Neutrophils % 51.5; Nucleated RBC 0 %; Platelet Count 311 10^3/uL (130-400); RBC 4.92 10^6/uL (3.93-5.22); RDW 12.7 % (11.7-14.6); WBC 5.02 10^3/uL (4.4-10.8)
[2020-08-14 15:00] LABS: ALT 11 U/L (14-59); AST 11 U/L (15-37); Albumin 3.8 g/dL (3.4-5.0); Alkaline Phosphatase 51 U/L (46-116); BUN 9 mg/dL (7-18); Bilirubin, Total 0.3 mg/dL (0.2-1.0); CREATININE 0.7 mg/dL (0.55-1.02); Calcium 8.7 mg/dL (8.5-10.1); Chloride 105 mmol/L (98-107); Glucose 88 mg/dL (74-106); Potassium 4.2 mmol/L (3.5-5.1); Sodium 138 mmol/L (136-145); Total Protein 7.6 g/dL (6.4-8.2)
[2020-08-15 12:16] LABS: Lyme Ab w Rflx to Lyme Confirm Negative (Negative)
[2020-08-18 11:57] LABS: Anaplasma phagocytophilum Negative (Negative); B. miyamotoi PCR Negative (Negative); Babesia divergens/MO-1 Negative (Negative); Babesia duncani Negative (Negative); Babesia microti Negative (Negative); Ehrlichia chaffeensis Negative (Negative); Ehrlichia ewingii/canis Negative (Negative); Ehrlichia muris eauclairensis Negative (Negative)
== END 2020-08-14 15:47 | disposition home or self-care (01) ==
PROVIDERS: Emergency Provider Physician Assistant; PCP Nurse Practitioner
DX: J31.2 Chronic pharyngitis (principal); R53.83 Other fatigue
CPT/HCPCS: 36415; 80053; 87798; 99283; 85025; 86618

== ENCOUNTER 2020-09-27 12:43 | Emergency (ER) | payer MEDICAID, SELFPAY ==
[2020-09-27 12:50] VITALS: BP 120/78; PULSE 79; RESP 18; O2SAT 97
--- NOTE | 2020-09-27 13:11 | W.ED.GENAD ---
Discharge Plan Disposition Patient Disposition: HOME Condition: Good Discharge Details Clinical Impression: Hemorrhoids, Anal fissure Primary Care Provider: Aracelis Maki ED Provider: Augie Freedman Home Meds and New Rx's Prescriptions: New hydrocortisone acetate [Anusol-HC] 25 mg suppository 25 mg UT BID Qty: 24 RF: 0 Continued valacyclovir 500 mg tablet 500 mg PO ONCE Qty: 30 RF: 6 fexofenadine [Allergy Relief (fexofenadine)] 180 mg tablet 180 mg PO DAILY Qty: 90 RF: 3 omeprazole 20 mg capsule,delayed release(DR/EC) 20 mg PO DAILY Qty: 90 RF: 3 acetaminophen [Tylenol] 325 mg tablet 325 mg PO ONCE PRNRF: 0 pseudoephedrine HCl [Sudafed 12 Hour] 120 mg tablet extended release 120 mg PO Q12H PRNRF: 0 simethicone [Gas Relief (simethicone)] 125 mg tablet,chewable 125 mg PO TID PRNRF: 0 docusate sodium [Colace] 100 mg capsule 100 mg PO DAILY RF: 0 aspirin [Aspir-81] 81 MG tablet,delayed release (DR/EC) 81 mg PO DAILY RF: 0 Botox 100 UNIT recon soln 100 unit IJ DIRECTED RF: 0 Hold Instructions: Changed by Provider clonazepam [Klonopin] 0.5 MG tablet 0.5 mg PO BID Qty: 120 RF: 0 mesalamine 1.2 gram tablet,delayed release (DR/EC) 1.2 gm PO QID RF: 0 metronidazole 0.75 % gel 1 applic TP BID RF: 0 albuterol sulfate 90 mcg/actuation HFA aerosol inhaler 2 puff IH QID PRN (Reason: shortness of breath or wheezing) Qty: 18 RF: 5 hydrocortisone [Anusol-HC] 2.5 % cream with perineal applicator 1 applic UT QD-BID PRN (Reason: hemorrhoids) Qty: 30 RF: 2 hydroxyzine HCl 25 mg tablet 50 mg PO BID RF: 0 Discharge Instructions Instructions: Hemorrhoids (ED), Anal Fissure (ED) Additional Instructions: Please continue your sitz bath's. Take Tylenol and Motrin as needed. Stick with a liquid diet for the next week. Continue to use your stool softeners. Please take the new medication Anusol as directed. Please follow-up closely with the surgeons for reassessment. If you notice any worsening of your symptoms, or any new symptoms such as vomiting, diarrhea, fever, chills, shortness of breath, chest pain, numbness, weakness, or fainting , please return immediately to the emergency department for reevaluation. Please follow up with your primary care provider as soon as possible for reassessment and reevaluation. As always, it was a pleasure participating in your medical care today. Referrals: Ginette Esquivel MD [ [facility] STAFF PHYSICIAN] - Addie Medel DO [OSTEOPATHIC DOCTOR] - Medical Decision Making 30-year-old female with past medical history of hemorrhoids presents today for evaluation of hemorrhoids. Patient has had previous hemorrhoids in the distant past, but since her previous evaluation sometime back she has been able to manage it well with stool softeners. Unfortunately she had a very large bowel movement the other day which caused procurement of 3 hemorrhoids per her personal inspection. Since then she has had notable pain burning rectally, and irritation with hemorrhoids. She has been taking her prescription strength steroid cream, as well as stool softeners with no improvement. She has not followed up with surgery. Exam demonstrates skin tags, no external hemorrhoids, no bleeding. There is an internal hemorrhoid on exam and suspected clinical fissure. No masses rectally at this time. Patient is hemodynamically stable. I do feel she is appropriate for discharge but I would like to change her therapy. Will include Anusol suppository, recommend continued stool softener, and baths. We will place the surgery referral with Dr. Medel and Dr. Esquivel. Discussed red flags which to return. I have extensively reviewed the treatment plan and discharge instructions with the patient. I have addressed all patient concerns at this time. The patient was made aware of what symptoms to monitor for that would warrant a return to the emergency department. Discussed the plan with the patient, they demonstrate verbal understanding and agreement with our assessment and plan at this time. The documentation in this chart was dictated using [employer] dictation software. Please excuse any dictation errors. HPI General Date/Time Provider Initiated Documentation: 09/27/20 12:46. HPI Narrative: 30-year-old female with past medical history of hemorrhoids presents today for evaluation of hemorrhoids. Patient has had previous hemorrhoids in the distant past, but since her previous evaluation sometime back she has been able to manage it well with stool softeners. Unfortunately she had a very large bowel movement the other day which caused procurement of 3 hemorrhoids per her personal inspection. Since then she has had notable pain burning rectally, and irritation with hemorrhoids. She has been taking her prescription strength steroid cream, as well as stool softeners with no improvement. She has not followed up with surgery. Related Data Home Medications Medication Instructions Recorded Confirmed aspirin [Aspir-81] 81 mg PO DAILY tab-cap 09/24/14 09/27/20 Botox 100 unit IJ DIRECTED vial 06/11/15 09/27/20 clonazepam [Klonopin] 0.5 mg PO BID #120 tab-cap 07/25/17 09/27/20 valacyclovir 500 mg tablet 500 mg PO ONCE #30 tab 08/08/18 09/27/20 mesalamine 1.2 gram tablet,delayed 1.2 gm PO QID tab 09/25/19 09/27/20 release fexofenadine 180 mg tablet 180 mg PO DAILY #90 tab 11/19/19 09/27/20 omeprazole 20 mg capsule,delayed 20 mg PO DAILY #90 cap 04/08/20 09/27/20 release metronidazole 0.75 % topical gel 1 applic TP BID 04/29/20 09/27/20 albuterol sulfate 90 mcg/actuation 2 puff IH QID PRN #18 gm 05/21/20 09/27/20 aerosol inhaler acetaminophen 325 mg tablet 325 mg PO ONCE PRN 06/18/20 09/27/20 docusate sodium 100 mg capsule 100 mg PO DAILY 06/18/20 09/27/20 pseudoephedrine HCl 120 mg 120 mg PO Q12H PRN 06/18/20 09/27/20 tablet,extended release simethicone 125 mg chewable tablet 125 mg PO TID PRN 06/18/20 09/27/20 hydrocortisone 2.5 % topical cream 1 applic UT QD-BID PRN #30 g 09/24/20 09/27/20 with perineal applicator hydrocortisone acetate [Anusol-HC] 25 mg UT BID #24 ea 09/27/20 hydroxyzine HCl 50 mg PO BID 09/27/20 09/27/20 Previous Rx's Medication Instructions Recorded valacyclovir 500 mg tablet 500 mg PO ONCE #30 tab 08/08/18 fexofenadine 180 mg tablet 180 mg PO DAILY #90 tab 11/19/19 omeprazole 20 mg capsule,delayed 20 mg PO DAILY #90 cap 04/08/20 release albuterol sulfate 90 mcg/actuation 2 puff IH QID PRN #18 gm 05/21/20 aerosol inhaler hydrocortisone 2.5 % topical cream 1 applic UT QD-BID PRN #30 g 09/24/20 with perineal applicator hydrocortisone acetate [Anusol-HC] 25 mg UT BID #24 ea 09/27/20 Allergies Allergy/AdvReac Type Severity Reaction Status Date / Time Penicillins Allergy Mild Itching, Verified 08/14/20 15:23 hives lamotrigine [From Lamictal] Allergy Unknown Verified 08/14/20 15:27 levetiracetam [From Keppra] Allergy Suicidality- Verified 08/14/20 15:27 mood swings Estrogens AdvReac Severe CVA Verified 08/14/20 15:27 fluticasone propionate AdvReac Intermediate epistaxis Verified 08/14/20 15:27 [From Flonase] General Stated Complaint: GenMedical DONOVAN: 4 Review of Systems All systems reviewed & are unremarkable except as noted in HPI and below PFSH Medical History Cerebral venous sinus thrombosis (09/04/13) POSSILBE SEIZURE ACTIVITY indefinite aspirin Neurology 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 Botox q10 wks 03/28/19 05/26/20 [facility] [place] therapeutic botox Dyspareunia Environmental allergies Flat feet, bilateral Gastroesophageal reflux disease without esophagitis (02/19/16) 02/20/19 Upper GI Endoscopy at [facility] [place]. 02/06/19 [facility]-heartburn Left ovarian cyst Migraine headache without aura Multiple thyroid nodules (10/14/16) Ovarian cyst Rosacea 08/15/18 [facility] [place] Dermatology Thyroid lesion Surgical History Colonoscopy/EGD w/ BX (04/29/16) Hemorrhoidectomy (08/03/17) excision of clot from hemorrhoid Family History Mother No problems noted. Father No problems noted. Grandfather Stroke Grandmother Stroke Social History Smoking/Tobacco Use Status: Never Smoking risk assessment performed?: Yes Alcohol Intake: current Alcohol Intake frequency: holidays/special occasions only Drug use: Never Substance use type: does not use Do you feel safe at home: Yes Do you feel safe in your relationship?: Yes Female Reproductive History Menstrual control method: diaphragm and other (spermicide) History History 0 Para Hx # Term Pregnancies Multiple births Hx # Pregnancies Ectopic pregnancies AB induced Hx Number of Living Children AB spontaneous Exam Narrative Exam Narrative: 1.Const: Well-nourished, Well-developed, appearing stated age 2.Eyes: PERRL, no conjunctival injection, and symmetrical lids. 3.ENT: Atraumatic external nose and ears. Moist MM. Neck: Symmetric, trachea midline, No thyromegaly. 4.CVS: +S1/S2, No murmurs or gallops. Peripheral pulses 2+ and equal in all extremities. Brisk capillary refill in all extremities. 5.RESP: Unlabored respiratory effort. Clear to auscultation bilaterally. No wheezes rales or rhonchi 6.GI: Soft, Nontender/Nondistended, No hepatosplenomegaly. No guarding or rebound. Rectal exam was performed with female nurse Halina at bedside. Exam demonstrates multiple skin tags, no external hemorrhoid. There is evidence of an internal hemorrhoid on digital exam. No large fissure is noted, but suspected small fissure based on clinical assessment. No blood on digital exam. No large mass that I can appreciate. 7.MSK: Normocephalic/Atraumatic, Extremities w/o deformity or ttp No cyanosis or clubbing, Normal movement of all extremities 8.Skin: Warm, Dry. No rashes or lesions. 9.Neuro: per assessment nurse II-XII grossly intact. Sensation grossly intact, no focal neurologic deficits. 10.Psych: (AAO) x3. Appropriate mood and affect Course Vital Signs Vital signs: Vital Signs Pulse 79 09/27/20 12:50 Respiratory Rate 18 09/27/20 12:50 Blood Pressure 120/78 09/27/20 12:50 Pulse Oximetry 97 09/27/20 12:50 Pulse 79 09/27/20 12:50 Respiratory Rate 18 09/27/20 12:50 Respiratory Effort Non-Labored 09/27/20 13:02 Blood Pressure 120/78 09/27/20 12:50 Blood Pressure Position Sitting 09/27/20 12:50 Pulse Oximetry 97 09/27/20 12:50 Oxygen Delivery Method Room Air 09/27/20 12:50 Oxygen Flow Rate 0 09/27/20 12:50 Pain Level 10 09/27/20 12:50
[2020-09-27] MEDS: Lidocaine/Epinephri/Tetracaine Topical Gel 3 ML (13:13)
[2020-09-27 13:28] VITALS: RESP 18
--- NOTE | 2020-09-27 13:34 | NUR.NOTE ---
Referral to General Surgery to f/u in 1 week for anal fissure, hemorrhoid.
== END 2020-09-27 13:40 | disposition home or self-care (01) ==
LOC: ER 13:27
PROVIDERS: Emergency Provider Student in an Organized Health Care Education/Training Program; PCP Nurse Practitioner
DX: K64.4 Residual hemorrhoidal skin tags (principal); K60.0 Acute anal fissure
CPT/HCPCS: 99283

== ENCOUNTER 2020-10-03 11:27 | Outpatient (REF) | payer MEDICAID, SELFPAY ==
[2020-10-06 21:39] LABS: Calprotectin <15.6 mcg/g
== END 2020-10-03 11:28 | disposition home or self-care (01) ==
LOC: LBN 11:27
PROVIDERS: PCP Nurse Practitioner; Visit Provider Nurse Practitioner Adult Health
DX: K52.3 Indeterminate colitis (principal)
CPT/HCPCS: 83993

== ENCOUNTER 2020-12-19 02:49 | Outpatient (CLI) | payer MEDICAID, SELFPAY ==
--- NOTE | 2020-12-19 07:30 | DI.US_ITS ---
Exam(s) US BREAST LT COMPLETE EXAM: US BREAST LT COMPLETE CLINICAL HISTORY: breast pain and increase nodularity, MASS LT BREAST, N63.20 TECHNIQUE: Ultrasound performed using standard protocol. COMPARISON: No exams were available for comparison FINDINGS: Left breast ultrasound was performed to evaluate questionable area palpable abnormality of the breast in approximately 12 o'clock position. There is echogenic dense breast tissue in this region, howeve r no mass or cyst is identified. There is a normal appearing 1 cm axillary lymph node noted. IMPRESSION: Negative breast ultrasound. Negative ultrasound does not entirely exclude the possibility of maligna ncy and should not preclude biopsy of any clinically suspicious palpable breast mass. DATA REPOSITORY:
== END 2020-12-19 03:09 ==
PROVIDERS: PCP Nurse Practitioner; Visit Provider Nurse Practitioner Family
DX: N64.4 Mastodynia (principal)
CPT/HCPCS: 76642

== ENCOUNTER 2021-01-02 09:02 | Outpatient (CLI) | payer MEDICAID, SELFPAY ==
--- NOTE | 2021-01-02 07:45 | DI.MRI_ITS ---
Exam(s) MR LOWER JOINT LT WO EXAM: MR LOWER JOINT LT WO CLINICAL HISTORY: chronic L knee pain and instability, swelling,[id number]. TECHNIQUE: Multiplanar multisequence MRI was performed. COMPARISON: No exams were available for comparison FINDINGS: BONES: There is no fracture or contusion pattern. JOINTS: Articular cartilage is unremarkable. No effusion is present. TENDONS: Extensor mechanism: Unremarkable. Medial retinaculum: Unremarkable. Lateral retinaculum: Unremarkable. Popliteus: Unremarkable. MUSCLES: Unremarkable. MENISCI: The medial meniscus is unremarkable. The lateral meniscus is unremarkable. SOFT TISSUES: Unremarkable. LIGAMENTS: Anterior Cruciate: Unremarkable. Posterior Cruciate: Unremarkable. Medial Collateral:Unremarkable. Lateral Collateral: Unremarkable. OTHER: IMPRESSION: Unremarkable MRI of the left knee. DATA REPOSITORY:
== END 2021-01-02 09:22 ==
PROVIDERS: PCP Nurse Practitioner; Visit Provider Nurse Practitioner
DX: G89.29 Other chronic pain; M25.562 Pain in left knee; R22.42 Localized swelling, mass and lump, left lower limb; M23.52 Chronic instability of knee, left knee
CPT/HCPCS: 73721

== ENCOUNTER 2021-02-17 21:16 | Emergency (ER) | payer MEDICAID, SELFPAY ==
[2021-02-17 21:30] VITALS: BP 139/92; PULSE 61; RESP 18; TEMP 36.3; O2SAT 97
--- NOTE | 2021-02-17 21:45 | DI.RAD_ITS ---
Exam(s) XR CHEST 2V PA LATERAL EXAM: XR CHEST 2V PA LATERAL CLINICAL HISTORY: chest pain and shortness of breath TECHNIQUE: 2D digital imaging was performed. COMPARISON: No exams were available for comparison FINDINGS: MEDIASTINUM: Normal. HEART: Normal. PULMONARY VASCULATURE: Normal. LUNGS: Clear. PLEURAL SPACE: No pleural effusion or pneumothorax. BONE:Within normal limits for the patient's age. OTHER FINDINGS:Normal. IMPRESSION: No acute pulmonary findings. DATA REPOSITORY: RADIATION DOSE DELIVERED:
--- NOTE | 2021-02-17 22:00 | RT.EKG_ITS ---
APPROVED REPORT Exam: Resting ECG Reason for Exam: diff breathing Patient Location: E HR:64 bpm ECG Measurements Heart Rate 64 AXIS VA 166 P 39 QRSd 87 QRS 51 QT 416 T 46 QTc 429 Conclusion Sinus rhythm...normal P axis, V-rate 60- 99
[2021-02-17 22:15] VITALS: PULSE 66; RESP 1; RESP 18; O2SAT 97
[2021-02-17] MEDS: Albuterol/Ipratropium 3 ML UPD VIAL UPD (22:15)
[2021-02-17 22:22] LABS: Abs Immature Grans 0.01 10^3/uL (0.0-0.06); Absolute Basophil Count 0.05 10^3/uL (0.0-0.2); Absolute Eosinophil Count 0.14 10^3/uL (0.0-0.7); Absolute Lymphocyte Count 2.31 10^3/uL (1.2-3.4); Absolute Monocyte Count 0.47 10^3/uL (0.1-0.8); Absolute Neutrophil Count 1.87 10^3/uL (1.2-6.7); Eosinophils % 2.9; HGB 11.6 g/dL (11.2-15.7); Immature Grans % 0.2; Lymphocytes % 47.6; MCHC 32.2 % (32.0-36.0); MPV 9.2 fL (8.0-11.0); Monocytes % 9.7; Neutrophils % 38.6; Nucleated RBC 0 %; Platelet Count 268 10^3/uL (130-400); RBC 4.14 10^6/uL (3.93-5.22); RDW-SD 41.2 fL; WBC 4.85 10^3/uL (4.4-10.8)
[2021-02-17 22:45] VITALS: PULSE 68; RESP 1; RESP 18; O2SAT 97
[2021-02-17 22:45] LABS: ALT 11 U/L (14-59); AST 13 U/L (15-37); Albumin 3.6 g/dL (3.4-5.0); Alkaline Phosphatase 51 U/L (46-116); Anion Gap 7.7 mmol/L (3-11); BUN 14 mg/dL (7-18); Bilirubin, Total 0.1 mg/dL (0.2-1.0); CO2 26.3 mmol/L (21.0-32.0); CREATININE 0.8 mg/dL (0.55-1.02); Calcium 8.9 mg/dL (8.5-10.1); Chloride 107 mmol/L (98-107); Glucose 95 mg/dL (74-106); Potassium 3.8 mmol/L (3.5-5.1); Sodium 141 mmol/L (136-145); TSH (W/Ref FT4) 1.51 uIU/mL (0.36-3.74); Total Protein 7.1 g/dL (6.4-8.2); Troponin I < 0.05 ng/mL (<0.06)
--- NOTE | 2021-02-17 22:47 | DI.VRAD_ITS ---
PROCEDURE INFORMATION: Exam: XR Chest Exam date and time: 02/17/2021 9:59 PM Age: 30 years old Clinical indication: Pain; Shortness of breath; Other: Not specified; Additional info: Chest pain and shortness of breath TECHNIQUE: Imaging protocol: XR of the chest. Views: 2 views. COMPARISON: CT CHEST/ABD/PEL W 09/08/2019 2:36 PM FINDINGS: Lungs: Unremarkable. No consolidation. Pleural spaces: Unremarkable. No pleural effusion. No pneumothorax. Heart/Mediastinum: Unremarkable. No cardiomegaly. Bones/joints: Unremarkable. IMPRESSION: No acute findings. Dictated and Authenticated by: Danny Alfaro MD. Ordering:MAGUI Gonzalez MD
[2021-02-17 22:59] LABS: D-Dimer 280 ng/mlFEU (<500)
[2021-02-17 23:04] VITALS: BP 118/61; PULSE 81; RESP 16; TEMP 36.3; O2SAT 100
--- NOTE | 2021-02-17 23:12 | W.ED.GENAD ---
Discharge Plan Disposition Patient Disposition: HOME Condition: Stable Discharge Details Clinical Impression: Shortness of breath Primary Care Provider: Aracelis Maki ED Provider: Lisa Gonsalez Home Meds and New Rx's Prescriptions: New prednisone 20 mg tablet 20 mg PO BID Qty: 8 RF: 0 Continued omeprazole 20 mg capsule,delayed release(DR/EC) 20 mg PO DAILY Qty: 90 RF: 3 acetaminophen [Tylenol] 325 mg tablet 325 mg PO ONCE PRNRF: 0 pseudoephedrine HCl [Sudafed 12 Hour] 120 mg tablet extended release 120 mg PO Q12H PRNRF: 0 simethicone [Gas Relief (simethicone)] 125 mg tablet,chewable 125 mg PO TID PRNRF: 0 docusate sodium [Colace] 100 mg capsule 100 mg PO DAILY RF: 0 (DME) Bilateral orthotics for shoes See Rx Instructions .Route .MEDSUPPLY Qty: 2 RF: 4 aspirin [Aspir-81] 81 MG tablet,delayed release (DR/EC) 81 mg PO DAILY RF: 0 clonazepam [Klonopin] 0.5 MG tablet 0.5 mg PO BID Qty: 120 RF: 0 mesalamine 1.2 gram tablet,delayed release (DR/EC) 1.2 gm PO QID RF: 0 metronidazole 0.75 % gel 1 applic TP BID RF: 0 albuterol sulfate 90 mcg/actuation HFA aerosol inhaler 2 puff IH QID PRN (Reason: shortness of breath or wheezing) Qty: 18 RF: 5 valacyclovir 500 mg tablet 500 mg PO ONCE Qty: 30 RF: 6 naproxen 500 mg tablet 500 mg PO BID PRN (Reason: pain) Qty: 60 RF: 3 fexofenadine [Allergy Relief (fexofenadine)] 180 mg tablet 180 mg PO DAILY Qty: 90 RF: 3 hydroxyzine HCl 25 mg tablet 50 mg PO BID RF: 0 Discharge Instructions Instructions: Dyspnea (ED) Additional Instructions: Follow-up with the [facility] [employer] Use the inhaler, 2 puffs every 4-6 hours as needed for shortness of breath Take prednisone as prescribed Return earlier should you have new or worsening complaints Call your primary care physician tomorrow to schedule outpatient follow-up Referrals: Lisa Gonsalez PA [Emergency Provider] - Rachel Conde MD [ [facility] STAFF PHYSICIAN] - Aracelis Maki NP [Primary Care Provider] - Discharge Data Discharge Date/Time-TO BE ENTERED AT DEPARTURE: 02/17/21 23:34 Medical Decision Making Vitals stable, oxygenation 100% on room air, no respiratory distress D-dimer within normal limits, diagnostic labs are within normal limits, chest x-ray does not show acute abnormality Not currently on exogenous hormone -A short course of steroids Given a spacer for her inhaler Feeling symptomatically improved after neb in the emergency room, ambulatory with steady gait Return precautions discussed and patient expressed understanding Referral to pulmonology Low suspicion for coronary artery disease, EKG and troponin negative with greater than 6 hours of symptoms, patient chest pain-free at this time and extremely low risk patient for coronary artery disease I did consider pulmonary embolism however patient has had the symptoms intermittently and with negative D-dimer my suspicion is quite low that this patient has pulmonary embolism Pulmonology referral, PCP notification reevaluation within the next week Return precautions and patient and expressed understanding Medical Records Medical records reviewed: Yes I reviewed the patient's medical records. Lab Data Lab results reviewed: Yes I reviewed the patient's lab results. HPI General Mode of arrival: ambulatory. Date/Time Provider Initiated Documentation: 02/17/21 21:32. Limitations to Documentation: no limitations. Information obtained by: patient. HPI Narrative: This 30-year-old female presents with intermittent shortness of breath for the past several months. She states that her doctor empirically started her on Advair and albuterol which she has been using. This week when she has been exerting herself CPAP shortness of breath and indigestion and became concerned. She states last episode was this morning during her walk approximately 7 hours prior to arrival. She does not smoke, have history of hypertension, hyperlipidemia or known early cardiac disease in family members. She denies any history of pulmonary embolism. She has a history of venous sinus thrombosis which was several years ago when induced by exogenous hormone estrogen. She states that she is only on a baby aspirin and denies any additional coagulopathies. She is mildly short of breath at rest right now reportedly. She denies any calf pain or swelling. She denies any recent flights, surgeries, long drives. She denies any associated cough. She states that her symptoms feel similarly to her possible new diagnosis of asthma aside from the indigestion she experienced. She denies any radiation of pain. She denies any current chest pain. Related Data Home Medications Medication Instructions Recorded Confirmed aspirin [Aspir-81] 81 mg PO DAILY tab-cap 09/24/14 02/17/21 clonazepam [Klonopin] 0.5 mg PO BID #120 tab-cap 07/25/17 02/17/21 mesalamine 1.2 gram tablet,delayed 1.2 gm PO QID tab 09/25/19 02/17/21 release omeprazole 20 mg capsule,delayed 20 mg PO DAILY #90 cap 04/08/20 02/17/21 release metronidazole 0.75 % topical gel 1 applic TP BID 04/29/20 02/17/21 albuterol sulfate 90 mcg/actuation 2 puff IH QID PRN #18 gm 05/21/20 02/17/21 aerosol inhaler acetaminophen 325 mg tablet 325 mg PO ONCE PRN 06/18/20 11/03/20 docusate sodium 100 mg capsule 100 mg PO DAILY 06/18/20 11/03/20 pseudoephedrine HCl 120 mg 120 mg PO Q12H PRN 06/18/20 02/17/21 tablet,extended release simethicone 125 mg chewable tablet 125 mg PO TID PRN 06/18/20 02/17/21 hydroxyzine HCl 50 mg PO BID 09/27/20 02/17/21 valacyclovir 500 mg tablet 500 mg PO ONCE #30 tab 10/20/20 02/17/21 Bilateral orthotics for shoes #2 ea 11/03/20 11/03/20 naproxen 500 mg tablet 500 mg PO BID PRN #60 tab 11/13/20 02/17/21 fexofenadine 180 mg tablet 180 mg PO DAILY #90 tab 12/24/20 02/17/21 prednisone 20 mg PO BID #8 tab 02/17/21 Previous Rx's Medication Instructions Recorded omeprazole 20 mg capsule,delayed 20 mg PO DAILY #90 cap 04/08/20 release albuterol sulfate 90 mcg/actuation 2 puff IH QID PRN #18 gm 05/21/20 aerosol inhaler valacyclovir 500 mg tablet 500 mg PO ONCE #30 tab 10/20/20 Bilateral orthotics for shoes #2 ea 11/03/20 naproxen 500 mg tablet 500 mg PO BID PRN #60 tab 11/13/20 fexofenadine 180 mg tablet 180 mg PO DAILY #90 tab 12/24/20 prednisone 20 mg PO BID #8 tab 02/17/21 Allergies Allergy/AdvReac Type Severity Reaction Status Date / Time Penicillins Allergy Mild Itching, Verified 02/17/21 22:10 hives lamotrigine [From Lamictal] Allergy Unknown Verified 02/17/21 22:10 levetiracetam [From Keppra] Allergy Suicidality- Verified 02/17/21 22:10 mood swings Estrogens AdvReac Severe CVA Verified 02/17/21 22:10 fluticasone propionate AdvReac Intermediate epistaxis Verified 02/17/21 22:10 [From Flonase] General Stated Complaint: [facility] DONOVAN: 3 Review of Systems All systems reviewed & are unremarkable except as noted in HPI and below PFS Medical History (Updated 02/17/21 @ 23:19 by KODY Olson) Cerebral venous sinus thrombosis (09/04/13) POSSILBE SEIZURE ACTIVITY indefinite aspirin Neurology [facility] [employer] Chronic migraine without aura without status migrainosus, not intractable (11/10/16) 08/28/2015 [facility] [place]rapeutic B[place] injections every 12 weeks 11[place]15[place]18 [place] [facility] [place]. Botox q10 wks 03/28/19 05/26/20 [facility] [place] therapeutic botox Chronic pain of left knee Dyspareunia Environmental allergies Flat feet, bilateral Gastroesophageal reflux disease without esophagitis (02/19/16) 02/20/19 [place] [facility] [place]19 [facility]-heartburn Left ovarian cyst Migraine headache without aura Multiple thyroid nodules (10/14/16) Ovarian cyst Rosacea 08/15/18 [facility] [place] Thyroid lesion Surgical History Colonoscopy/EGD w/ BX (04/29/16) Hemorrhoidectomy (08/03/17) excision of clot from hemorrhoid Family History Mother No problems noted. Father No problems noted. Grandfather Stroke Grandmother Stroke Social History Smoking/Tobacco Use Status: Never Smoking risk assessment performed?: Yes Alcohol Intake: current Alcohol Intake frequency: holidays/special occasions only Drug use: Never Substance use type: does not use Do you feel safe at home: Yes Do you feel safe in your relationship?: Yes Female Reproductive History Menstrual control method: diaphragm and other History History 0 Para Hx # Term Pregnancies Multiple births Hx # Pregnancies Ectopic pregnancies AB induced Hx Number of Living Children AB spontaneous Exam Const General: cooperative and no acute distress Eyes Sclera: sclerae normal Resp Effort & Inspection: normal respiratory effort Other: No respiratory distress, mildly diminished, no wheezing Cardio Rate: regular rate Rhythm: regular rhythm GI Inspection: normal to inspection Auscultation: normal bowel sounds Skin General skin exam: no rashes or lesions noted Neuro General: patient alert and patient oriented x3 Extrem Other: No calf swelling or tenderness appreciated, distal pulses intact Course Vital Signs Vital signs: Vital Signs Temperature 36.3 C L 02/17/21 21:30 Temperature 36.3 C L 02/17/21 23:04 Temperature Source Tympanic 02/17/21 23:04 Pulse 81 02/17/21 23:04 Respiratory Effort Non-Labored 02/17/21 22:22 Blood Pressure 118/61 02/17/21 23:04 Blood Pressure Position Sitting 02/17/21 21:30 Pulse Oximetry 100 02/17/21 23:04 Oxygen Delivery Method Room Air 02/17/21 23:04 Oxygen Flow Rate 0 02/17/21 23:04 Pain Level 0 02/17/21 21:30 Lab/Test Results Lab/Test Results: Laboratory Tests Range/Units 02/17/21 02/17/21 02/17/21 21:15 21:15 21:15 WBC (4.4-10.8) 10^3/uL 4.85 RBC (3.93-5.22) 10^6/uL 4.14 Hgb (11.2-15.7) g/dL 11.6 Hct (36.0-46.0) % 36.0 MCV (80-95) fL 87.0 MCH (27.0-33.0) pg 28.0 MCHC (32.0-36.0) % 32.2 RDW (11.7-14.6) % 13.0 Plt Count (130-400) 10^3/uL 268 MPV (8.0-11.0) fL 9.2 Immature Gran % 0.2 Neutrophils % 38.6 Lymphocytes % 47.6 Monocytes % 9.7 Eosinophils % 2.9 Basophils % 1.0 Nucleated RBC % % 0 Absolute Neutrophils (1.2-6.7) 10^3/uL 1.87 Absolute Lymphocytes (1.2-3.4) 10^3/uL 2.31 Absolute Monocytes (0.1-0.8) 10^3/uL 0.47 Absolute Eosinophils (0.0-0.7) 10^3/uL 0.14 Absolute Basophils (0.0-0.2) 10^3/uL 0.05 D-Dimer (<500) ng/mlFEU 280 Sodium (136-145) mmol/L 141 Potassium (3.5-5.1) mmol/L 3.8 Chloride (98-107) mmol/L 107 Carbon Dioxide (21.0-32.0) mmol/L 26.3 Anion Gap (3-11) mmol/L 7.7 BUN (7-18) mg/dL 14 Creatinine (0.55-1.02) mg/dL 0.8 Estimated GFR/1.73 m2 (mL/min/1.73m2) >= 60.00 Glucose (74-106) mg/dL 95 Calcium (8.5-10.1) mg/dL 8.9 Total Bilirubin (0.2-1.0) mg/dL 0.1 L AST (15-37) U/L 13 L ALT (14-59) U/L 11 L Alkaline Phosphatase (46-116) U/L 51 Troponin I (<0.06) ng/mL < 0.05 Total Protein (6.4-8.2) g/dL 7.1 Albumin (3.4-5.0) g/dL 3.6 TSH (0.36-3.74) uIU/mL 1.51 POC- Test(urine) Negative
[2021-02-18] MEDS: predniSONE 20 MG TAB 40 MG PO (04:48)
== END 2021-02-17 23:34 | disposition home or self-care (01) ==
PROVIDERS: Emergency Provider Physician Assistant; PCP Nurse Practitioner
DX: R06.02 Shortness of breath (principal); R07.9 Chest pain, unspecified
CPT/HCPCS: 36415; 80053; 81025; 93005; 94640; 99284; 71046; 84443; 84484; 85025; 85379; 93010; 99283; J7512; J7620

== ENCOUNTER 2021-03-18 13:11 | Outpatient (CLI) | payer MEDICAID, SELFPAY ==
--- NOTE | 2021-03-18 13:00 | DI.RAD_ITS ---
Exam(s) XR CHEST 2V PA LATERAL EXAM: XR CHEST 2V PA LATERAL CLINICAL HISTORY: cough, R05, r/o pneumonia. TECHNIQUE: 2D digital imaging was performed. COMPARISON: CR,XR XR CHEST 2V PA LATERAL from 02/17/2021 FINDINGS: Heart size is normal. The mediastinum is not widened. Lungs are clear. No infiltrates nor pleural effusions. IMPRESSION: No acute pulmonary findings. DATA REPOSITORY: RADIATION DOSE DELIVERED:
== END 2021-03-18 13:31 ==
PROVIDERS: PCP Nurse Practitioner; Visit Provider Physician Assistant
DX: R05 Cough (principal)
CPT/HCPCS: 71046

== ENCOUNTER 2021-03-18 18:23 | Outpatient (REF) | payer MEDICAID, SELFPAY ==
[2021-03-20 12:04] LABS: COVID-19 RT-PCR UVMMC Result Negative (Negative)
== END 2021-03-18 18:24 | disposition home or self-care (01) ==
LOC: LBN 18:23
PROVIDERS: PCP Nurse Practitioner; Visit Provider Physician Assistant
DX: Z20.822 Contact with and (suspected) exposure to COVID-19 (principal); J18.9 Pneumonia, unspecified organism
CPT/HCPCS: U0003

== ENCOUNTER 2021-08-17 12:48 | Emergency (ER) | payer MEDICAID, SELFPAY ==
[2021-08-17 13:03] VITALS: BP 130/81; PULSE 82; RESP 16; TEMP 36.8; O2SAT 98
--- NOTE | 2021-08-17 14:30 | DI.US_ITS ---
Exam(s) US SOFT TISSUE HEAD OR NECK EXAM: US SOFT TISSUE HEAD OR NECK CLINICAL HISTORY: Right post auricular lump. TECHNIQUE: Ultrasound was performed using standard protocol. COMPARISON: CT NECK WITH CONTRAST from 03/28/2017 FINDINGS: Sonographic assessment utilizing grayscale and color Doppler imaging was performed and targeted to th e area of clinical concern. A normal appearing lymph node measuring 9 x 2 x 9 millimeters is noted c orresponding to the palpable abnormality. Superficial 4 millimeter hypoechoic area is noted in the r ight parotid gland, too small to characterize. IMPRESSION: Normal appearing reactive lymph node in the right postauricular region. 4 millimeter nodule in the right parotid gland probable small cyst.. DATA REPOSITORY:
--- NOTE | 2021-08-17 14:36 | W.ED.GENAD ---
Discharge Plan Disposition Patient Disposition: HOME Condition: Stable Discharge Details Clinical Impression: Lymphadenopathy, postauricular Primary Care Provider: Aracelis Maki ED Provider: Sneha Morales Home Meds and New Rx's Prescriptions: New clindamycin HCl [Cleocin HCl] 300 mg capsule 300 mg PO BID 7 Days Qty: 14 0RF Continued acetaminophen [Tylenol] 325 mg tablet 325 mg PO ONCE PRN0RF pseudoephedrine HCl [Sudafed 12 Hour] 120 mg tablet extended release 120 mg PO Q12H PRN0RF simethicone [Gas Relief (simethicone)] 125 mg tablet,chewable 125 mg PO TID PRN0RF multivitamin Tablet 1 tab PO DAILY 0RF hydroxyzine HCl 25 mg tablet 50 mg PO BID Qty: 90 11RF (DME) Bilateral orthotics for shoes See Rx Instructions .Route .MEDSUPPLY Qty: 2 4RF Rx Instructions: History plantar fasciitis valacyclovir 500 mg tablet 500 mg PO ONCE Qty: 30 12RF nystatin 100,000 unit/gram cream 1 applic topical BID Qty: 30 3RF ketoconazole 2 % cream 1 applic topical BID Qty: 60 3RF omeprazole 20 mg capsule,delayed release(DR/EC) 20 mg PO DAILY Qty: 90 3RF aspirin [Aspir-81] 81 MG tablet,delayed release (DR/EC) 81 mg PO DAILY 0RF clonazepam [Klonopin] 0.5 MG tablet 0.5 mg PO BID Qty: 120 0RF Label Comments: 10/27/17 takes 2 pills AM 1 pill evening RH as of 01/23/18 [facility] Rx Instructions: per Dr. Youngblood 07/20/17 one pill PRN, and 2 Pills HS PRN, RH mesalamine 1.2 gram tablet,delayed release (DR/EC) 1.2 gm PO QID 0RF Rx Instructions: # 120 ref 6, [facility] note dated 07/05/19, continuous treatment due to family hx. 09/25/2019 [facility]- decrease # of tablets in a tapering fashion to lowest effective dose. Goal: 1 1200mg tablet daily. albuterol sulfate 90 mcg/actuation HFA aerosol inhaler 2 puff IH QID PRN (Reason: shortness of breath or wheezing) Qty: 18 5RF naproxen 500 mg tablet 500 mg PO BID PRN (Reason: pain) Qty: 60 3RF fexofenadine [Allergy Relief (fexofenadine)] 180 mg tablet 180 mg PO DAILY Qty: 90 3RF metronidazole 0.75 % gel 1 applic TP BID Qty: 45 12RF Discharge Instructions Instructions: Lymphadenopathy (ED) Additional Instructions: Take the antibiotic as directed. I do recommend Flonase also. You do have a swollen lymph node behind the ear. Questionable cyst in the parotid gland which can be also a result of an infection. Suck on sour candies such as lemon candy or similar. You can try massage around the bottom of your jaw as well. Please keep your appointment with ear nose and throat as previously scheduled. Follow up with primary care provider in 3-5 days. Return to ED sooner if any worsening or concerns. Increase oral fluids. Please take Tylenol or Ibuprofen with food every 4-6 hours as needed for pain and swelling. Referrals: Hoang Ahmadi MD [ [facility] STAFF PHYSICIAN] - 1 week Aracelis Maki NP [Primary Care Provider] - Medical Decision Making 31-year-old female presents to the ER with chief complaint of right posterior auricular lump. Patient reports that it has been there approximately 1 or 2 months ago and has returned. She reports longstanding history of tinnitus and right ear pain. She reports over the last couple of days she has noticed increased in size of the lump and changing consistency. She also does have some small skin lesions surrounding the area and to the posterior neck which she has been seen by her primary care provider about before. 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 She is waiting to hear back from ear nose and throat. Other past medical history includes allergic rhinitis, asthma, migraines, fibrocystic breast changes, ovarian cyst and multiple thyroid nodules. Soft tissue ultrasound ordered to evaluate area, differential diagnosis includes Dr. Anabelle melton, otitis media, insect bite. Right tympanic membrane is retracted and erythematous with some fluid effusion noted. I did discuss possible antibiotics and Flonase patient and family are requesting ultrasound. EXAM:? US SOFT TISSUE HEAD OR NECK CLINICAL HISTORY: ? Right post auricular lump.? TECHNIQUE:? Ultrasound was performed using standard protocol. COMPARISON:? CT NECK WITH CONTRAST from 03/28/2017 FINDINGS: Sonographic assessment utilizing grayscale and color Doppler imaging was performed and targeted to the area of clinical concern.? A normal appearing lymph node measuring 9 x 2 x 9 millimeters is noted corresponding to the palpable abnormality.? Superficial 4 millimeter hypoechoic area is noted in the right parotid gland, too small to characterize. IMPRESSION: Normal appearing reactive lymph node in the? right postauricular region.? 4 millimeter nodule in the right parotid gland probable small cyst.. Yes discussed ultrasound results with patient and home care. I did discuss taking antibiotic and follow-up with ENT, patient was placed on care management list for ear nose and throat follow-up. I did discuss sucking on hard sour candies as needed for possible pericarditis. Patient placed on clindamycin twice daily instructed to use Flonase. Patient and family verbalized understanding. This text was generated using [employer]ideside[employer] system, please disregard any oddities of phrase or misspellings. HPI General Mode of arrival: ambulatory. Date/Time Provider Initiated Documentation: 08/17/21 13:10. Limitations to Documentation: no limitations. Information obtained by: patient, family, RN notes reviewed and old records reviewed. HPI Narrative: 31-year-old female presents to the ER with chief complaint of right posterior auricular lump. Patient reports that it has been there approximately 1 or 2 months ago and has returned. She reports longstanding history of tinnitus and right ear pain. She reports over the last couple of days she has noticed increased in size of the lump and changing consistency. She also does have some small skin lesions surrounding the area and to the posterior neck which she has been seen by her primary care provider about before. 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 She is waiting to hear back from ear nose and throat. Other past medical history includes allergic rhinitis, asthma, migraines, fibrocystic breast changes, ovarian cyst and multiple thyroid nodules. Related Data Home Medications Medication Instructions Recorded Confirmed aspirin 81 mg tablet,delayed 81 mg PO DAILY tab-cap 09/24/14 08/17/21 release (Aspir-) clonazepam 0.5 mg tablet (Klonopin) 0.5 mg PO BID #120 tab-cap 07/25/17 08/17/21 mesalamine 1.2 gram tablet,delayed 1.2 gm PO QID tab 09/25/19 08/17/21 release albuterol sulfate 90 mcg/actuation 2 puff IH QID PRN #18 gm 05/21/20 08/17/21 aerosol inhaler acetaminophen 325 mg tablet 325 mg PO ONCE PRN 06/18/20 08/17/21 (Tylenol) pseudoephedrine HCl 120 mg 120 mg PO Q12H PRN 06/18/20 08/17/21 tablet,extended release (Sudafed 12 Hour) simethicone 125 mg chewable tablet 125 mg PO TID PRN 06/18/20 08/17/21 (Gas Relief (simethicone)) Bilateral orthotics for shoes #2 ea 11/03/20 08/05/21 naproxen 500 mg tablet 500 mg PO BID PRN #60 tab 11/13/20 08/17/21 fexofenadine 180 mg tablet 180 mg PO DAILY #90 tab 12/24/20 08/17/21 (Allergy Relief (fexofenadine)) multivitamin 1 tab PO DAILY 04/23/21 08/17/21 ketoconazole 2 % topical cream 1 applic TOPICAL BID #60 g 06/15/21 08/17/21 nystatin 100,000 unit/gram topical 1 applic TOPICAL BID #30 g 06/15/21 08/17/21 cream valacyclovir 500 mg tablet 500 mg PO ONCE #30 tab 06/15/21 08/17/21 metronidazole 0.75 % topical gel 1 applic TP BID #45 g 07/13/21 08/17/21 omeprazole 20 mg capsule,delayed 20 mg PO DAILY #90 cap 07/23/21 08/17/21 release hydroxyzine HCl 25 mg tablet 50 mg PO BID #90 tab 08/05/21 08/17/21 clindamycin HCl 300 mg capsule 300 mg PO BID 7 Days #14 cap 08/17/21 (Cleocin HCl) Previous Rx's Medication Instructions Recorded albuterol sulfate 90 mcg/actuation 2 puff IH QID PRN #18 gm 05/21/20 aerosol inhaler Bilateral orthotics for shoes #2 ea 11/03/20 naproxen 500 mg tablet 500 mg PO BID PRN #60 tab 11/13/20 fexofenadine 180 mg tablet 180 mg PO DAILY #90 tab 12/24/20 (Allergy Relief (fexofenadine)) ketoconazole 2 % topical cream 1 applic TOPICAL BID #60 g 06/15/21 nystatin 100,000 unit/gram topical 1 applic TOPICAL BID #30 g 06/15/21 cream valacyclovir 500 mg tablet 500 mg PO ONCE #30 tab 06/15/21 metronidazole 0.75 % topical gel 1 applic TP BID #45 g 07/13/21 omeprazole 20 mg capsule,delayed 20 mg PO DAILY #90 cap 07/23/21 release hydroxyzine HCl 25 mg tablet 50 mg PO BID #90 tab 08/05/21 clindamycin HCl 300 mg capsule 300 mg PO BID 7 Days #14 cap 08/17/21 (Cleocin HCl) Allergies Allergy/AdvReac Type Severity Reaction Status Date / Time Penicillins Allergy Mild Itching, Verified 08/17/21 13:08 hives lamotrigine [From Lamictal] Allergy Unknown Verified 08/17/21 13:08 levetiracetam [From Keppra] Allergy Suicidality- Verified 08/17/21 13:08 mood swings Estrogens AdvReac Severe CVA Verified 08/17/21 13:08 fluticasone propionate AdvReac Intermediate epistaxis Verified 08/17/21 13:08 [From Flonase] General Stated Complaint: RashLesion DONOVAN: 3 Review of Systems All systems reviewed & are unremarkable except as noted in HPI and below ENT Ears, Nose, Mouth, and Throat: Reports otalgia and Reports other (Tinnitus) [facility] All Active Problems (Updated 08/17/21 @ 15:38 by Sneha Morales) Lymphadenopathy, postauricular (Acute) Shortness of breath (Acute) Irritable bowel syndrome with constipation (Acute) Hemorrhoids (Acute) Anal fissure (Acute) Migraine headache without aura (Acute) Chronic migraine (Acute) Indeterminate colitis (Acute) 05/13/20 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. Bloating, generalized abdominal pain Chronic migraine without aura without status migrainosus, not intractable (Acute 11/10/16) 08/28/2015 [facility] [place] Therapeutic Botox injections every 12 weeks [place]15[place] [facility] [place]. Botox q10 wks 03/28/19 05/26/20 [facility] [place] therapeutic botox Cerebral venous sinus thrombosis (Acute 09/04/13) POSSILBE SEIZURE ACTIVITY indefinite aspirin Neurology Clement Lundy-Michael [employer] Medical History (Updated 08/17/21 @ 15:38 by Sneha Morales) Acute pain of left knee Allergic rhinitis due to pollen Asthma Chronic migraine 09/17/19 [place] - Therapeutic Botox Chronic pain of left knee Chronic tonsillitis Dyspareunia Environmental allergies Fibrocystic breast changes Flat feet, bilateral Gastroesophageal reflux disease without esophagitis (02/19/16) 02/20/19 [place] [facility] 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 Father No problems noted. Grandfather Stroke Grandmother Stroke Social History Smoking/Tobacco Use Status: Never Smoking risk assessment performed?: Yes Alcohol Intake: current Alcohol Intake frequency: 0-2 drinks per day Drug use: Never Substance use type: does not use Do you feel safe at home: Yes Do you feel safe in your relationship?: Yes Female Reproductive History Menstrual control method: diaphragm and other History History 0 Para Hx # Term Pregnancies Multiple births Hx # Pregnancies Ectopic pregnancies AB induced Hx Number of Living Children AB spontaneous Exam Narrative Exam Narrative: Constitutional: Alert and oriented x3. Appears stated age. Normal body habitus. Head: Normocephalic, no trauma. Eyes: Pupils PERRL, Red reflex noted, EOM's intact. Eyelids symmetrical without lesions, discharge, or swelling. ENT: Bilateral see ENT exam below , Nasal turbinates WNL, no nasal discharge. Normal dentition, Posterior pharynx WNL, no exudate. Chest: RRR, Normal S1, S2, distal pulses intact. Resp: Lungs clear to auscultation bilaterally, no wheezes, rales, or rhonchi. Abdomen: Soft, non-distended, Normoactive bowel sounds all 4 quads. Musculoskeletal: Normal gait, 5/5 strength to all four extremities. Skin: No suspicious rashes or lesions. Capillary refill less than 2 sec. Neurologic: Cranial nerves II-XII intact. Alert and oriented x 3. Motor: No deficits noted. Sensory: Intact bilaterally all 4 extremities. Reflexes: DTR's intact bilaterally.. Hematologic/Lymphatic: No ecchymosis, no lymphadenopathy. [facility] Head images: 1. Approximately 2 cm in length lesion noted to the back of her right ear with a central excoriation. Mild erythema surrounding. No area of fluctuance. Ears: TM normal on the left and TM abnormal (Right) erythematous, with fluid behind the TM and retracted Course Vital Signs Vital signs: Vital Signs Temperature 36.8 C 08/17/21 13:03 Pulse 82 08/17/21 13:03 Respiratory Rate 16 08/17/21 13:03 Blood Pressure 130/81 08/17/21 13:03 Pulse Oximetry 98 08/17/21 13:03 Temperature 36.8 C 08/17/21 13:03 Temperature Source Skin 08/17/21 13:03 Pulse 82 08/17/21 13:03 Respiratory Rate 16 08/17/21 13:03 Respiratory Effort 08/17/21 13:03 Blood Pressure 130/81 08/17/21 13:03 Blood Pressure Position Sitting 08/17/21 13:03 Pulse Oximetry 98 08/17/21 13:03 Oxygen Delivery Method Room Air 08/17/21 13:03 Oxygen Flow Rate 0 08/17/21 13:03 Pain Level 3 08/17/21 13:03
--- NOTE | 2021-08-18 04:34 | NUR.NOTE ---
Faxed referral to ENT for follow up in two weeks for a cyst per Sneha Morales. Placed referral in customer care team coach's box for follow up.
== END 2021-08-17 17:03 | disposition home or self-care (01) ==
PROVIDERS: Emergency Provider Registered Nurse Emergency; PCP Nurse Practitioner
DX: H61.891 Other specified disorders of right external ear (principal); R22.0 Localized swelling, mass and lump, head; R59.0 Localized enlarged lymph nodes
CPT/HCPCS: 76536; 99284; 99283

== ENCOUNTER 2021-11-24 13:55 | Outpatient (REF) | payer MEDICAID, SELFPAY | END 2021-11-24 13:56 | disposition home or self-care (01) | LOC: LBN 13:55 | PROVIDERS: PCP Nurse Practitioner; Visit Provider Nurse Practitioner | DX: R30.0 Dysuria (principal) | CPT/HCPCS: 87077; 87086; 87186 ==

== ENCOUNTER → 2021-12-15 01:32 | Outpatient (CLI) | payer MEDICAID, SELFPAY ==
--- NOTE | 2021-12-15 | DI.US_ITS ---
Exam(s) US OB TRANSVAGINAL EXAM: US OB TRANSVAGINAL CLINICAL HISTORY: H/O DVT,? DATES AND VIABILITY,HIGH RISK,009.91. COMPARISON: US US PELVIS TRANSVAGINAL from 06/04/2020 TECHNIQUE: Transabdominal Transvaginal first trimester obstetrical ultrasound performed. FINDINGS: Sonographic images demonstrate a single intrauterine gestation. A yolk sac and pole are seen. Sonographically assessed gestational age based upon crown-rump length of 0.6 cm is: 6 weeks 3 days Estimated date of delivery based on this ultrasound is: 08/07/2022 heart rate motion is Dopplered at: 122 bpm. No free fluid identified. Both ovaries appear sonographically normal. Note is made of a 2.2 cm right corpus luteal cyst. Pelvic Measurments Uterus: 7.7 x 5.3 x 5.8 cm Rt Ovary: 3.3 x 1.6 x 1.6 cm Lt Ovary: 2.3 x 1.8 x 1.7 cm Note is made of a very small subchorionic hemorrhage. IMPRESSION: There is a single living intrauterine gestation estimated sonographic age is 6 weeks 3 days. DATA REPOSITORY:
== END ==
PROVIDERS: PCP Nurse Practitioner; Visit Provider Obstetrics & Gynecology Maternal & Fetal Medicine
DX: O09.91 Supervision of high risk pregnancy, unspecified, first trimester (principal); Z86.718 Personal history of other venous thrombosis and embolism; Z3A.01 Less than 8 weeks gestation of pregnancy
CPT/HCPCS: 76817

== ENCOUNTER 2022-01-27 03:26 | Outpatient (CLI) | payer MEDICAID, SELFPAY ==
[2022-01-27 14:08] LABS: Kit/Specimen SENT
[2022-02-05 16:24] LABS: Result Summary NEGATIVE; Specimen WB Whole Blood
== END 2022-01-27 03:27 | disposition home or self-care (01) ==
LOC: LBO 03:27
PROVIDERS: PCP Nurse Practitioner; Visit Provider Advanced Practice Midwife
DX: Z34.81 Encounter for supervision of other normal pregnancy, first trimester (principal)
CPT/HCPCS: 36415; 81220

== ENCOUNTER 2022-05-17 03:12 | Outpatient (CLI) | payer MEDICAID, SELFPAY ==
[2022-05-17 16:33] LABS: HCT 33.4 % (36.0-46.0); HGB 11.1 g/dL (11.2-15.7); MCH 29.6 pg (27.0-33.0); MCHC 33.2 % (32.0-36.0); MCV 89 fL (80-95); MPV 9.6 fL (8.0-11.0); Platelet Count 256 10^3/uL (130-400); RBC 3.75 10^6/uL (3.93-5.22); RDW 12.7 % (11.7-14.6); RDW-SD 41.7 fL; WBC 7.31 10^3/uL (4.4-10.8)
[2022-05-17 16:42] LABS: Glucose,1 Hr (Glucola) 93 mg/dL (80-140)
== END 2022-05-17 03:13 | disposition home or self-care (01) ==
LOC: LBO 03:12
PROVIDERS: Obstetrics & Gynecology Gynecology; PCP Nurse Practitioner; Visit Provider Obstetrics & Gynecology
DX: Z34.93 Encounter for supervision of normal pregnancy, unspecified, third trimester (principal); Z3A.28 28 weeks gestation of pregnancy
CPT/HCPCS: 36415; 82950; 85027; 86850; 86900; 86901

== ENCOUNTER 2022-06-08 12:00 | Emergency (ER) | payer MEDICAID, SELFPAY ==
[2022-06-08 12:09] VITALS: BP 112/65; PULSE 87; RESP 18; TEMP 36.9; O2SAT 96
[2022-06-08 12:14] VITALS: RESP 18
--- NOTE | 2022-06-08 13:30 | DI.US_ITS ---
Exam(s) US THYROID EXAM: US THYROID CLINICAL HISTORY: throat pressure, thyroid lesion. TECHNIQUE: Ultrasound thyroid performed using standard protocol. COMPARISON: US US THYROID from 10/31/2019 FINDINGS: There are nodules in both lobes. We will address the most significant nodules bilaterally. RIGHT THYROID LOBE: Measures 1.5 cm AP x 1.8 cm wide x 5.2 cm craniocaudal. This is upper normal siz e. It contains multiple small sub cm nodules. However, there is a significant nodule superiorly in the right lobe, with tirads grading as follows: Size: Measures 1.0 x 0.8 x 1.2 cm Composition: Solid-2 points Echogenicity: Hypoechoic-2 points Shape: Wider than taller in the transverse planer-0 points Margin: Smooth- 0 points Echogenic Foci: Multiple punctate echogenic foci-3 points Total Points for this nodule: 7 ACR Ti-Rads Category: TR5 This nodule requires ultrasound-guided FNA ISTHMUS: Normal thickness. There are no nodules in the isthmus. LEFT THYROID LOBE: Measures 1.5 cm AP x 1.8 wide x 5.5 cm craniocaudal There is a large partially solid partially cystic nodule which occupies the lower half of the left lo be. Grading 4 this nodule is as follows: Composition: Partially solid partially cystic-1 points Echogenicity: The solid component are isoechoic to the surrounding-1 points Shape: Wider than taller in the transverse plane-0 points Margin: Smooth-0 points Echogenic Foci: None-0 points Total points for this nodule: 2 ACR Ti-Rads Category: 2 LYMPH NODES: There is no significant adenopathy. IMPRESSION: 1. The nodule described above in the left thyroid lobe has slightly increased in size from prior ultr asound examination of 10/31/2019 but is classified as a TiRads 2 nodule and can be followed. 2. The smaller nodule (1.5 cm) in the superior aspect of the opposite-right thyroid lobe registers as a TiRads 5 nodule and requires ultrasound-guided FNA. 3. There is no significant lymphadenopathy. Findings discussed with ER provider DATA REPOSITORY:
[2022-06-08 14:54] LABS: Abs Immature Grans 0.05 10^3/uL (0.0-0.06); Absolute Basophil Count 0.04 10^3/uL (0.0-0.2); Absolute Eosinophil Count 0.07 10^3/uL (0.0-0.7); Absolute Lymphocyte Count 1.81 10^3/uL (1.2-3.4); Absolute Monocyte Count 0.63 10^3/uL (0.1-0.8); Absolute Neutrophil Count 6.36 10^3/uL (1.2-6.7); Basophils % 0.4; Eosinophils % 0.8; HCT 34.1 % (36.0-46.0); HGB 11.2 g/dL (11.2-15.7); Immature Grans % 0.6; Lymphocytes % 20.2; MCH 29.2 pg (27.0-33.0); MCHC 32.8 % (32.0-36.0); MCV 89 fL (80-95); MPV 9.5 fL (8.0-11.0); Platelet Count 317 10^3/uL (130-400); RBC 3.84 10^6/uL (3.93-5.22); RDW 12.7 % (11.7-14.6); RDW-SD 41.3 fL; WBC 8.96 10^3/uL (4.4-10.8)
[2022-06-08 15:16] LABS: ALT 19 U/L (14-59); AST 14 U/L (15-37); Albumin 2.9 g/dL (3.4-5.0); Alkaline Phosphatase 69 U/L (46-116); Anion Gap 6.9 mmol/L (3-11); BUN 8 mg/dL (7-18); Bilirubin, Total 0.1 mg/dL (0.2-1.0); CO2 26.1 mmol/L (21.0-32.0); CREATININE 0.7 mg/dL (0.55-1.02); Calcium 8.7 mg/dL (8.5-10.1); Chloride 104 mmol/L (98-107); Estimated GFR 117.77 (mL/min/1.73m2); Glucose 88 mg/dL (74-106); Potassium 3.9 mmol/L (3.5-5.1); Sodium 137 mmol/L (136-145); TSH (W/Ref FT4) 0.66 uIU/mL (0.36-3.74)
--- NOTE | 2022-06-08 15:35 | ED.GENADUL_ITS ---
Discharge Plan Disposition Patient Disposition: Home Condition: Stable Discharge Details Clinical Impression: Thyroid nodule Primary Care Provider: Aracelis Maki ED Provider: Lisa Gonsalez Home Meds and New Rx's Prescriptions: Continued acetaminophen [Tylenol] 325 mg tablet 325 mg PO ONCE PRN simethicone [Gas Relief (simethicone)] 125 mg tablet,chewable 125 mg PO TID PRN multivitamin Tablet 1 tab PO DAILY valacyclovir 500 mg tablet 500 mg PO DAILY omeprazole 20 mg capsule,delayed release(DR/EC) 20 mg PO DAILY Qty: 90 3RF hydroxyzine HCl 25 mg tablet 25 mg PO BID PRN enoxaparin [Lovenox] 40 mg/0.4 mL syringe 40 mg subcut DAILY clonazepam [Klonopin] 0.5 MG tablet 0.5 mg PO BID Qty: 120 Label Comments: 10/27/17 takes 2 pills AM 1 pill evening RH as of 01/23/18 RH Rx Instructions: per Dr. Youngblood 07/20/17 one pill PRN, and 2 Pills HS PRN, RH mesalamine 1.2 gram tablet,delayed release (DR/EC) 1.2 gm PO QID Rx Instructions: # 120 ref 6, [facility] note dated 07/05/19, continuous treatment due to kaylene mcgowan. 09/25/2019 [facility]- decrease # of tablets in a tapering fashion to lowest effective dose. Goal: 1 1200mg tablet daily. metronidazole 0.75 % gel 1 applic TP BID Qty: 45 12RF hydrocortisone 2.5 % cream with perineal applicator See Rx Instructions .ROUTE .COMPLEX Qty: 30 3RF Dose Instruction: APPLY RECTALLY TO THE AFFECTED AREA 1 TO 2 TIMES DAILY NEEDED FOR HEMORRHOIDS Rx Instructions: APPLY RECTALLY TO THE AFFECTED AREA 1 TO 2 TIMES DAILY NEEDED FOR HEMORRHOIDS (DME) Bilateral orthotics for shoes See Rx Instructions .Route .MEDSUPPLY Qty: 2 4RF Rx Instructions: History plantar fasciitis ketoconazole 2 % shampoo 1 applic topical DAILY Rx Instructions: Apply daily x1 month and leave on for 3-5 minutes Discharge Instructions Additional Instructions: Please follow-up with your primary care physician and ENT at your scheduled appointment You do have 2 thyroid nodules, 1 of which will need to be biopsied, likely in the past part in. There is nothing else that appears serious in any of your test Please return earlier should you have any worsening complaint Referrals: Aracelis Maki NP [Primary Care Provider] - 1 day Discharge Data Discharge Date/Time-TO BE ENTERED AT DEPARTURE: 06/08/22 16:04 Medical Decision Making This 32-year-old female 31 weeks presents for evaluation of subjective difficulty swallowing when she lays down at night. heart rate 152 Ultrasound ultrasound displays evidence of 2 nodules, 1 of which is suggested in need of biopsy per radiology interpretation and discussion in my review Patient's airway is patent, she is asymptomatic, sitting in the waiting room, laughing, does not appear to be in any distress and maintaining secretions just fine, she is drinking She is encouraged to follow-up with her primary care physician and she has an ENT appointment scheduled in the next 2 weeks, her symptoms have been present for greater than a month I think she stable for discharge home at this time She is also encouraged to 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 Lab Data Lab results reviewed: Yes I reviewed the patient's lab results. HPI General Date/Time Provider Initiated Documentation: 06/08/22 13:14 . HPI Narrative: This 32-year-old female presents with neck discomfort for the past 2 to 3 months. She states that she is having trouble sleeping secondary to laying on her abdomen with pressure on her neck. She denies any difficulty swallowing. Note, patient is 30 weeks . Denies any abdominal pain, vaginal bleeding, chest pain, shortness of breath, or any symptoms when she is awake. Related Data Home Medications Medication Instructions Recorded Confirmed clonazepam 0.5 mg tablet (Klonopin) 0.5 mg PO BID #120 tab-caps 07/25/17 06/08/22 mesalamine 1.2 gram tablet,delayed 1.2 gm PO QID 09/25/19 06/08/22 release acetaminophen 325 mg tablet 325 mg PO ONCE PRN 06/18/20 06/08/22 (Tylenol) simethicone 125 mg chewable tablet 125 mg PO TID PRN 06/18/20 06/08/22 (Gas Relief (simethicone)) multivitamin 1 tab PO DAILY 04/23/21 06/08/22 metronidazole 0.75 % topical gel 1 applic topical BID #45 grams 07/13/21 06/08/22 omeprazole 20 mg capsule,delayed 20 mg PO DAILY #90 caps 07/23/21 06/08/22 release hydrocortisone 2.5 % topical cream See Rx Instructions .Route 11/09/21 06/08/22 with perineal applicator .COMPLEX #30 grams Bilateral orthotics for shoes #2 ea 11/11/21 06/08/22 ketoconazole 2 % shampoo 1 applic topical DAILY 12/23/21 06/08/22 enoxaparin 40 mg/0.4 mL 40 mg subcut DAILY 01/26/22 06/08/22 subcutaneous syringe (Lovenox) hydroxyzine HCl 25 mg tablet 25 mg PO BID PRN 01/26/22 06/08/22 valacyclovir 500 mg tablet 500 mg PO DAILY 05/17/22 06/08/22 Previous Rx's Medication Instructions Recorded metronidazole 0.75 % topical gel 1 applic topical BID #45 grams 07/13/21 omeprazole 20 mg capsule,delayed 20 mg PO DAILY #90 caps 07/23/21 release hydrocortisone 2.5 % topical cream See Rx Instructions .Route 11/09/21 with perineal applicator .COMPLEX #30 grams Bilateral orthotics for shoes #2 ea 11/11/21 Allergies Allergy/AdvReac Type Severity Reaction Status Date / Time lamotrigine [From Lamictal] Allergy Unknown Verified 06/08/22 12:13 levetiracetam [From Keppra] Allergy Suicidality- Verified 06/08/22 12:13 mood swings Estrogens AdvReac Severe CVA Verified 06/08/22 12:13 fluticasone propionate AdvReac Intermediate epistaxis Verified 06/08/22 12:13 [From Flonase] General Stated Complaint: [facility] DONOVAN: 3 Review of Systems All systems reviewed & are unremarkable except as noted in HPI and below PFSH All Active Problems (Updated 06/08/22 @ 15:50 by KODY Olson) Thyroid nodule (Acute) Transient alteration of awareness (Acute ~05/2022) 05/27/22 Dr Youngblood (Acute) Viral wart (Acute) Left pointer finger and right 4th finger; Treated at [facility] [place] Derm Folliculitis (Acute 12/15/21) Shortness of breath (Acute) Irritable bowel syndrome with constipation (Acute) Hemorrhoids (Acute) Anal fissure (Acute) Migraine headache without aura (Acute) Chronic migraine (Acute) Indeterminate colitis (Acute) 05/13/20 [facility] Gastroenterology Ulcerative rectosigmoiditis without complication (Acute) per note dated 07/05/19 [facility] Chronic colitis (Chronic) per note dated 07/05/19 [facility] Irritable bowel syndrome with constipation (Acute) 02/06/19 [facility]. Bloating, generalized abdominal pain Chronic migraine without aura without status migrainosus, not intractable (Acute 11/10/16) 08/28/2015 [facility] [place] Therapeutic Botox injections every 12 weeks 11/15/18 f/u at [facility] [place] -therapeutic botox injections continue. 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 Father No problems noted. Grandfather Stroke Grandmother Stroke Social History Smoking/Tobacco Use Status: Never Smoking risk assessment performed?: Yes Alcohol Intake: never Drug use: Never Substance use type: does not use Do you feel safe at home: Yes Do you feel safe in your relationship?: Yes Female Reproductive History Menstrual control method: diaphragm and other History History 1 Para 0 Hx # Term Pregnancies 0 Multiple births 0 Hx # Pregnancies 0 Ectopic pregnancies 0 AB induced 0 Hx Number of Living Children 0 AB spontaneous 0 Exam Const General: cooperative and comfortable Eyes Pupils: PERRL Other: Moist mucous membranes, uvula midline Neck Neck: normal visual inspection Other: Mild thyromegaly, no stridor Resp Effort & Inspection: normal respiratory effort Cardio Rate: regular rate GI Other: Gravid uterus, nontender abdominal exam Skin General skin exam: no rashes or lesions noted Course Vital Signs Vital signs: Vital Signs Temperature 36.9 C 06/08/22 12:09 Pulse 87 06/08/22 12:09 Respiratory Rate 18 06/08/22 12:09 Blood Pressure 112/65 06/08/22 12:09 Pulse Oximetry 96 06/08/22 12:09 Temperature 36.9 C 06/08/22 12:09 Temperature Source Temporal Artery Scan 06/08/22 12:09 Pulse 87 06/08/22 12:09 Respiratory Rate 18 06/08/22 12:14 Respiratory Effort Non-Labored 06/08/22 12:14 Respiratory Depth Normal 06/08/22 12:14 Respiratory Pattern Normal 06/08/22 12:14 Blood Pressure 112/65 06/08/22 12:09 Blood Pressure Position Sitting 06/08/22 12:09 Pulse Oximetry 96 06/08/22 12:09 Oxygen Delivery Method Room Air 06/08/22 12:09 Oxygen Flow Rate 0 06/08/22 12:09 Lab/Test Results Lab/Test Results: Laboratory Tests Range/Units 06/08/22 06/08/22 14:42 14:42 WBC (4.4-10.8) 10^3/uL 8.96 RBC (3.93-5.22) 10^6/uL 3.84 L Hgb (11.2-15.7) g/dL 11.2 Hct (36.0-46.0) % 34.1 L MCV (80-95) fL 89 MCH (27.0-33.0) pg 29.2 MCHC (32.0-36.0) % 32.8 RDW (11.7-14.6) % 12.7 Plt Count (130-400) 10^3/uL 317 MPV (8.0-11.0) fL 9.5 Immature Gran % 0.6 Neutrophils % 71.0 Lymphocytes % 20.2 Monocytes % 7.0 Eosinophils % 0.8 Basophils % 0.4 Nucleated RBC % (0.0-0.3) % 0.0 Absolute Neutrophils (1.2-6.7) 10^3/uL 6.36 Absolute Lymphocytes (1.2-3.4) 10^3/uL 1.81 Absolute Monocytes (0.1-0.8) 10^3/uL 0.63 Absolute Eosinophils (0.0-0.7) 10^3/uL 0.07 Absolute Basophils (0.0-0.2) 10^3/uL 0.04 Sodium (136-145) mmol/L 137 Potassium (3.5-5.1) mmol/L 3.9 Chloride (98-107) mmol/L 104 Carbon Dioxide (21.0-32.0) mmol/L 26.1 Anion Gap (3-11) mmol/L 6.9 BUN (7-18) mg/dL 8 Creatinine (0.55-1.02) mg/dL 0.7 Est GFR (CKD-EPI 2020) (mL/min/1.73m2) 117.77 Glucose (74-106) mg/dL 88 Calcium (8.5-10.1) mg/dL 8.7 Total Bilirubin (0.2-1.0) mg/dL 0.1 L AST (15-37) U/L 14 L ALT (14-59) U/L 19 Alkaline Phosphatase (46-116) U/L 69 Total Protein (6.4-8.2) g/dL 7.0 Albumin (3.4-5.0) g/dL 2.9 L TSH (0.36-3.74) uIU/mL 0.66
== END 2022-06-08 16:04 | disposition home or self-care (01) ==
PROVIDERS: Emergency Provider Physician Assistant; PCP Nurse Practitioner
DX: O99.283 Endocrine, nutritional and metabolic diseases complicating pregnancy, third trimester (principal); E04.2 Nontoxic multinodular goiter; O99.513 Diseases of the respiratory system complicating pregnancy, third trimester; J45.909 Unspecified asthma, uncomplicated; Z3A.31 31 weeks gestation of pregnancy
CPT/HCPCS: 80053; 99284; 76536; 84443; 85025; 99282

== ENCOUNTER 2022-07-13 13:16 | Outpatient (REF) | payer MEDICAID, SELFPAY ==
[2022-07-13 13:58] LABS: *AMPHETAMINES SCREEN URINE Negative (Negative); *BARBITURATES SCREEN URINE Negative (Negative); *BENZODIAZEPINES SCREEN URINE Negative (Negative); Cannabinoids THC Negative (Negative); Cocaine Screen,Urine Negative (Negative); METHADONE URINE SCREEN Negative (Negative); OPIATES URINE SCREEN Negative (Negative)
[2022-07-13 14:01] LABS: Tricyclic Antidepressants Negative (Negative)
[2022-07-16 11:56] LABS: Buprenorphine Negative ng/mL (Cutoff: 5.0); Norbuprenorphine Negative ng/mL (Cutoff: 2.5)
== END 2022-07-13 13:17 | disposition home or self-care (01) ==
LOC: LBN 13:16
PROVIDERS: PCP Nurse Practitioner; Visit Provider Obstetrics & Gynecology
DX: Z34.93 Encounter for supervision of normal pregnancy, unspecified, third trimester (principal); Z36.85 Encounter for antenatal screening for Streptococcus B; Z3A.36 36 weeks gestation of pregnancy
CPT/HCPCS: 80307; 80348; 87081

== ENCOUNTER 2023-06-21 19:42 | Outpatient (CLI) | payer MEDICAID, SELFPAY ==
[2023-06-21 12:44] LABS: HCG Quant, Pregnancy 775 mIU/mL (1-3)
== END 2023-06-21 19:43 | disposition home or self-care (01) ==
LOC: LBO 19:42
PROVIDERS: PCP Nurse Practitioner; Visit Provider Obstetrics & Gynecology Maternal & Fetal Medicine
DX: Z34.91 Encounter for supervision of normal pregnancy, unspecified, first trimester (principal)
CPT/HCPCS: 36415; 84702

== ENCOUNTER 2023-06-24 12:11 | Outpatient (CLI) | payer MEDICAID, SELFPAY ==
[2023-06-24 12:05] LABS: HCG Quant, Pregnancy 1577 mIU/mL (1-3)
== END 2023-06-24 12:12 | disposition home or self-care (01) ==
LOC: LBO 12:11
PROVIDERS: PCP Nurse Practitioner; Visit Provider Obstetrics & Gynecology Maternal & Fetal Medicine
DX: Z34.91 Encounter for supervision of normal pregnancy, unspecified, first trimester (principal); Z3A.01 Less than 8 weeks gestation of pregnancy
CPT/HCPCS: 36415; 84702

== ENCOUNTER → 2023-06-30 01:34 | Outpatient (CLI) | payer MEDICAID, SELFPAY ==
--- NOTE | 2023-06-30 | DI.US_ITS ---
Exam(s) US OB 1ST TRIMESTER EXAM: US OB 1ST TRIMESTER CLINICAL HISTORY: CONCEIVED LACTATING,? DATES,Z34.90. COMPARISON: US US OB TRANSVAGINAL from 12/15/2021 TECHNIQUE: Transabdominal Transvaginal first trimester obstetrical ultrasound performed. FINDINGS: There is an intrauterine gestational sac which is too small for dating. It measures 0.6 x 0.5 x 0.8 mm. No pole or yolk sac are seen at this time. There is a subchorionic hemorrhage measuring 2 .0 x 1.3 x 1.5 cm. Pelvic Measurments Uterus: 7.2 x 5.2 x 5.9 cm Rt Ovary: 3.3 x 2.3 x 2.5 cm Lt Ovary: 2.1 x 2.1 x 2.1 cm There is blood flow seen to both ovaries. IMPRESSION: 1. Single intrauterine gestational sac is identified. The size however is too small for dating. Fol low-up with beta HCG levels and/or repeat ultrasound to establish viability. 2. Small subchorionic hemorrhage. DATA REPOSITORY:
== END ==
PROVIDERS: PCP Nurse Practitioner; Visit Provider Obstetrics & Gynecology Maternal & Fetal Medicine
DX: Z34.91 Encounter for supervision of normal pregnancy, unspecified, first trimester (principal)
CPT/HCPCS: 76801

== ENCOUNTER → 2023-07-07 10:14 | Outpatient (CLI) | payer MEDICAID, SELFPAY ==
--- NOTE | 2023-07-07 | DI.US_ITS ---
Exam(s) US OB 1ST TRIMESTER EXAM: US OB 1ST TRIMESTER CLINICAL HISTORY: Z34.90 , CONCEIVED WHILE LACTATING. COMPARISON: US US OB TRANSVAGINAL from 12/15/2021 US US OB 1ST TRIMESTER from 06/30/2023 TECHNIQUE: Transabdominal Transvaginal first trimester obstetrical ultrasound performed. FINDINGS: Pelvic Measurments Uterus: 7.5 x 4.9 x 6.3 cm Rt Ovary: 2.5 x 2.1 x 1.9 cm Lt Ovary: 2.5 x 2.1 x 1.8 cm corpus luteum cyst. Both ovaries appear sonographically normal. A small gestational sac is noted within the endometrium. Mean sac diameter is 6 millimeters, at out of range. No pole or yolk sac are identified. IMPRESSION: A small distaste renal sac is noted within the endometrial cavity which has increased slightly in siz e from the prior exam however no pole or yolk sac is identified which should be apparent at thi s time. Consistent with a nonviable gestation. DATA REPOSITORY:
== END ==
PROVIDERS: PCP Nurse Practitioner; Visit Provider Obstetrics & Gynecology Maternal & Fetal Medicine
DX: Z34.91 Encounter for supervision of normal pregnancy, unspecified, first trimester (principal)
CPT/HCPCS: 76801

== ENCOUNTER 2023-07-08 13:53 | Outpatient (CLI) | payer MEDICAID, SELFPAY ==
[2023-07-08 14:04] LABS: HCG Quant, Pregnancy 10261 mIU/mL (1-3)
== END 2023-07-08 13:54 | disposition home or self-care (01) ==
LOC: LBO 13:54
PROVIDERS: PCP Nurse Practitioner; Visit Provider Obstetrics & Gynecology Maternal & Fetal Medicine
DX: Z34.91 Encounter for supervision of normal pregnancy, unspecified, first trimester (principal); Z3A.01 Less than 8 weeks gestation of pregnancy
CPT/HCPCS: 36415; 84702

== ENCOUNTER 2023-07-08 21:23 | Outpatient (REF) | payer MEDICAID, SELFPAY ==
[2023-07-08 21:28] LABS: Bilirubin Negative (Negative); Blood Trace-intact (Negative); Clarity Clear (Clear); Glucose Negative (Negative); Ketones Negative (Negative); Leukocyte Esterase Small (Negative); Nitrite Negative (Negative); Specific Gravity <= 1.005 (1.005-1.025); Urobilinogen 0.2 mg/dL (Up to 0.2)
[2023-07-08 21:34] LABS: RBC 0-2 HPF (0-2); WBC 20-50 HPF (0-5)
[2023-07-08 21:35] LABS: Bacteria Rare HPF (Negative); C & S Indicated? Yes; Casts Negative LPF (Negative); Crystals Negative HPF (Negative); Epithelial Cells Rare HPF (Negative); Mucus Negative (Negative)
== END 2023-07-08 21:24 | disposition home or self-care (01) ==
LOC: LBN 21:23
PROVIDERS: PCP Nurse Practitioner; Visit Provider Nurse Practitioner Family
DX: N39.0 Urinary tract infection, site not specified (principal)
CPT/HCPCS: 81003; 81015; 87086

== ENCOUNTER 2023-07-11 19:13 | Outpatient (CLI) | payer MEDICAID, SELFPAY ==
[2023-07-11 11:12] LABS: HCG Quant, Pregnancy 11390 mIU/mL (1-3)
== END 2023-07-11 19:14 | disposition home or self-care (01) ==
LOC: LBO 19:13
PROVIDERS: PCP Nurse Practitioner; Visit Provider Obstetrics & Gynecology Maternal & Fetal Medicine
DX: Z34.91 Encounter for supervision of normal pregnancy, unspecified, first trimester (principal); Z3A.01 Less than 8 weeks gestation of pregnancy
CPT/HCPCS: 36415; 84702

== ENCOUNTER 2024-06-05 03:01 | Outpatient (CLI) | payer MEDICAID, SELFPAY ==
[2024-06-05 09:36] LABS: Glucose 1 Hour 165 mg/dL
[2024-06-05 11:52] LABS: Glucose 3 Hour 88 mg/dL
== END 2024-06-05 03:02 | disposition home or self-care (01) ==
PROVIDERS: PCP Nurse Practitioner; Visit Provider Obstetrics & Gynecology Maternal & Fetal Medicine
DX: R73.09 Other abnormal glucose (principal)
CPT/HCPCS: 36415; 82951

== ENCOUNTER 2024-07-09 01:23 | Outpatient (CLI) | payer MEDICAID, SELFPAY ==
--- NOTE | 2024-07-09 | DI.US_ITS ---
Exam(s) US OB HARRIS WEIGHT EXAM: US OB HARRIS WEIGHT CLINICAL HISTORY: GROWTH, HX CEREBRAL VENOUS SINUS THROMBOSIS Z86.718. TECHNIQUE: Transabdominal obstetrical ultrasound was performed. COMPARISON: US US OB DETAILED MORPHOLOGY from 04/02/2024 FINDINGS: There is a single viable intrauterine gestation with cardiac activity identified-144 bpm The fetus is presently in cephalic position with spine pointing left-anterior. Amniotic fluid: There is a normal amount of amniotic fluid with an HARRIS of 14.41cm. Placental location: The placenta is posterior/fundal, grade 1,with no evidence of placenta previa. Dating parameters place this at approximately 33 weeks and 5 days gestational age, implying [place] of 08/22/2024. BPD measures 33 weeks and 5 days HC measures 33 weeks and 4 days AC measures 33 weeks and 3 days FL measures 34 weeks and 0 days Estimated weight is 2243 gm-4 pounds, 15 ounces Fetus is at the 52nd percentile on the Hadlock scale. IMPRESSION:: Viable 3rd trimester gestation, as described above. Normal amount of amniotic fluid. Placenta is posterior. DATA REPOSITORY:
== END 2024-07-09 01:43 ==
LOC: DI 01:23
PROVIDERS: PCP Nurse Practitioner; Visit Provider Obstetrics & Gynecology Maternal & Fetal Medicine
DX: Z86.718 Personal history of other venous thrombosis and embolism (principal); Z34.83 Encounter for supervision of other normal pregnancy, third trimester; Z3A.34 34 weeks gestation of pregnancy
CPT/HCPCS: 76816